=== PATIENT | female | born 1990 | race Caucasian/White ===

== ENCOUNTER 2016-11-23 09:55 | Emergency (ER) | payer MEDICAID ==
[~2016-11-23] VITALS: Ht 165.1 cm; Wt 73.0 kg
[~2016-11-23 09:55] MED LIST: LORA2TAB7 PO; METO50TA PO; SCOP1PAT2 T-DERMAL
[2016-11-23 10:05] VITALS: BP 120/88; PULSE 91; RESP 18; TEMP 99.3; O2SAT 100
[2016-11-23] MEDS ORDERED: ZITHTAB PO (10:12)
--- NOTE | 2016-11-23 10:36 | PD ---
HPI Chief Complaint: Respiratory Symptoms Time Seen by Provider: 10:09 Travel History International Travel<30 days: No Contact w/Intl Traveler<30days: No Traveled to known affect area: No History of Present Illness HPI This is a 26-year-old female who presents to the emergency department with 4 days of productive cough with green sputum, worse during the day, associated with nasal congestion and some subjective fevers and chills. She has been feeling short of breath, constant, moderate severity, worsening today. She does smoke cigarettes. She was seen at an urgent care 4 days ago and diagnosed with walking pneumonia. Didn't have a chest x-ray at that time. She was placed on azithromycin. She comes back in because she is concerned that she might have pneumonia because she's not getting any better and she feels short of breath. She does have an albuterol inhaler in her purse but she doesn't like to use it because it makes her feel jittery. PFSH Past Medical History Asthma: Yes Anxiety: Yes Depression: Yes Cardiovascular Problems: Yes High Cholesterol: Yes Diminished Hearing: No Genitourinary: No Hypertension: Yes (POST PREECLAMPSIA) Musculoskeletal: No Neurologic: No Reproductive: No Respiratory: Yes Immunizations Current: No Pneumonia: Yes ?: Not LMP: 11/05/16 : 2 Para: 1 Miscarriage: 1 : 1 Ovarian Cysts: Yes Dilation and Curettage (D&C): Yes Past Surgical History Gynecologic Surgery: Yes (D&C) Other Surgery: No Social History Alcohol Use: No Tobacco Use: Yes (1 PPD) Substance Use: No Allergies-Medications (Allergen,Severity, Reaction): Coded Allergies: Clarithromycin (Verified Allergy, Severe, Eye dilation , 11/23/16) Had to wear sunglasses outdoors and school. As well as indoors Latex (Verified Allergy, Severe, rash, 11/23/16) Cipro (Verified Allergy, Intermediate, vomiting/jittery, 11/23/16) GI Contrast Media (Verified Allergy, Unknown, Doesn't recall reaction , ) She doesn't remember at all. had an MRI as a child. Looking for brain tumors. Doxycycline (Verified Allergy, Unknown, 11/23/16) DOES NOT RECALL Penicillin (Verified Adverse Reaction, Severe, Hives , 11/23/16) Zoloft (Verified Adverse Reaction, Severe, Deep depression. , 11/23/16) Lost 60 pounds. Recurring infection Tylenol (Verified Adverse Reaction, Intermediate, Stomach aches , 11/23/16) Reported Meds & Prescriptions Reported Meds & Active Scripts Active Scopolamine Patch 72 HR (Scopolamine) 1 Mg Patch 1 Patch T-DERMAL Q72H Metoprolol Tartrate 50 Mg Tab 50 Mg PO BID Reported Zithromax Z-Ean (Azithromycin) 250 Mg Dspk 250 Mg PO DIRECTED 500 MG (2 tabs) day 1, then 1 tab days 2-5. Review of Systems Except as stated in HPI: all other systems reviewed are Neg Physical Exam Narrative GENERAL: Well-nourished, well-developed patient. SKIN: Warm and dry. HEAD: Normocephalic. EYES: No scleral icterus. No injection or drainage. NECK: Supple, trachea midline. CARDIOVASCULAR: Regular rate and rhythm without murmurs. RESPIRATORY: Minimal expiratory wheeze, no accessory muscle use, no tachypnea GASTROINTESTINAL: Abdomen soft, non-tender, nondistended. MUSCULOSKELETAL: No cyanosis, or edema. Data Data Last Documented VS Vital Signs Date Time Temp Pulse Resp B/P Pulse Ox O2 Delivery O2 Flow Rate FiO2 11/23/16 10:05 99.3 91 18 120/88 100 MDM Medical Decision Making Medical Screen Exam Complete: Yes Emergency Medical Condition: Yes Interpretation(s) Temperature is 99.3, pulse ox is 100 Differential Diagnosis Pneumonia, viral syndrome, influenza, bronchitis Narrative Course This is a 26-year-old female who presents to the emergency department with cough , congestion and low-grade fever. She has already taken 3 days of azithromycin and she doesn't like she's getting any better. Her oxygen saturation is 100% on room air. She has minimal wheezing on exam. I suggested to her to use her albuterol inhaler to manage her cough symptoms. I did offer her cough syrup but she declined. She was just really concerned that she has pneumonia. I think the patient is safe for discharge and follow-up with her primary care physician as needed. She likely has a viral illness and that's why she's not improving on the antibiotic. Diagnosis Primary Impression: Bronchitis Patient Instructions: General Instructions Additional Instructions: If you develop severe chest pain, shortness of breath, sweating, lightheadedness , dizziness or difficulty breathing return to the emergency department immediately. Followup with your primary care physician in 2-3 days if your symptoms are not resolved. Med/Other Pt SpecificInfo: No Change to Meds Disposition: 01 DISCHARGE HOME Condition: Stable Lashawn Rodriguez MD Nov 23, 2016 10:22
[2016-12-07] MEDS ORDERED: METO50TA PO ×2 (08:33→08:45)
[2016-12-08] MEDS ORDERED: LORA2TAB7 PO (11:02)
[2016-12-08] MEDS ORDERED: ZANTTAB9 PO (11:26)
[2016-12-08] MEDS ORDERED: LORA-361 PO (11:26)
== END 2016-11-23 11:07 | disposition home or self-care (01) ==
LOC: PHEFT 09:55
DX: J40 Bronchitis, not specified as acute or chronic (principal); E78.00 Pure hypercholesterolemia, unspecified; I10 Essential (primary) hypertension; F17.210 Nicotine dependence, cigarettes, uncomplicated
CPT/HCPCS: 99283

== ENCOUNTER 2017-04-01 23:32 | Emergency (ER) | payer MEDICAID ==
[~2017-04-01] VITALS: Ht 165.1 cm; Wt 79.7 kg
[~2017-04-01 23:32] MED LIST changes: +LORA-361 PO; -SCOP1PAT2 T-DERMAL; +ZANTTAB9 PO
[2017-04-01 23:43] VITALS: BP 134/102; PULSE 98; RESP 16; TEMP 98.5; O2SAT 99
[2017-04-02] MEDS ORDERED: LOPE2CAP PO (00:23)
--- NOTE | 2017-04-02 00:23 | PD ---
HPI Chief Complaint: GI Complaint Time Seen by Provider: 23:48 Travel History International Travel<30 days: No Contact w/Intl Traveler<30days: No Traveled to known affect area: No History of Present Illness HPI To 26 year-old woman who presents emergency department complaining that she feels unwell. Given URI symptoms as it multiple family members earlier this week. She completed a Z-Ean. Following that she noticed a rash, with a small wound on her left flank. She apparently went to a fairing worker to took samples of the drainage, presumably for culture. He also give her some clindamycin cream to put on it. She states since then she's been having diarrhea. States she has cramps in her lower abdomen and feel like contractions. Feels that she's been feeling hot and flushed with hot skin but no fever. She also feels chills. History Past Medical History Narrative Medical Hypertension LMP: "two weeks ago" : 2 Para: 1 Dilation and Curettage (D&C): Yes Social History Alcohol Use: No Tobacco Use: Yes (1 PPD) Allergies-Medications (Allergen,Severity, Reaction): Coded Allergies: Clarithromycin (Verified Allergy, Severe, Eye dilation , 04/02/17) Had to wear sunglasses outdoors and school. As well as indoors Latex (Verified Allergy, Severe, rash, 04/02/17) Cipro (Verified Allergy, Intermediate, vomiting/jittery, 04/02/17) GI Contrast Media (Verified Allergy, Unknown, Doesn't recall reaction , ) She doesn't remember at all. had an MRI as a child. Looking for brain tumors. Doxycycline (Verified Allergy, Unknown, 04/02/17) DOES NOT RECALL Penicillin (Verified Adverse Reaction, Severe, Hives , 04/02/17) Zoloft (Verified Adverse Reaction, Severe, Deep depression. , 04/02/17) Lost 60 pounds. Recurring infection Tylenol (Verified Adverse Reaction, Intermediate, Stomach aches , 04/02/17) Reported Meds & Prescriptions Reported Meds & Active Scripts Active Metoprolol Tartrate 50 Mg Tab 50 Mg PO BID Please send copy of your recent labs prior to more refills. Last set of labs we have are from 2014 Reported Ibuprofen 400 Mg Tab 400 Mg PO DAILY Lorazepam 2 Mg Tab 2 Mg PO Q6H PRN Review of Systems Except as stated in HPI: all other systems reviewed are Neg Physical Exam Narrative GENERAL: 18 year-old woman, no acute distress. SKIN: Focused skin assessment warm/dry. HEAD: Atraumatic. Normocephalic. CARDIOVASCULAR: Regular rate and rhythm. No murmur appreciated. RESPIRATORY: No accessory muscle use. Clear to auscultation. Breath sounds equal bilaterally. GASTROINTESTINAL: Normal contour and appearance but abdomen soft, minimal lower abdominal tenderness. She has a tiny wound on her left flank, about a couple millimeters in size, no erythema redness or drainage. States been applying clindamycin cream to the area. MUSCULOSKELETAL: No obvious deformities. No clubbing. No cyanosis. No edema. NEUROLOGICAL: Awake and alert. No obvious cranial nerve deficits. Motor grossly within normal limits. Normal speech. PSYCHIATRIC: Appropriate mood and affect; insight and judgment normal. Data Data Last Documented VS Vital Signs Date Time Temp Pulse Resp B/P Pulse Ox O2 Delivery O2 Flow Rate FiO2 04/02/17 01:05 82 18 108/69 98 Room Air 04/01/17 23:43 98.5 Orders Complete Blood Count With Diff (04/02/17 00:03) Comprehensive Metabolic Panel (04/02/17 00:03) Urinalysis - C+S If Indicated (04/02/17 00:03) Beta Hcg (Quant/Titer) (04/02/17 00:03) Enteric Path (Stool) (04/02/17 00:03) C Diff Toxin Pcr (04/02/17 00:03) Urine Culture (04/02/17 00:10) Labs Laboratory Tests Test 04/02/17 04/02/17 00:10 00:20 Urine Color YELLOW Urine Turbidity CLOUDY Urine pH 6.5 Urine Specific [place] 1.022 Urine Protein NEG mg/dL Urine Glucose (UA) NEG mg/dL Urine Ketones NEG mg/dL Urine Occult Blood NEG Urine Nitrite NEG Urine Bilirubin NEG Urine Leukocyte Esterase TRACE Urine RBC 0-2 /hpf Urine WBC 3-5 /hpf Urine Squamous Epithelial > 8 /hpf Cells Urine Amorphous Sediment MOD Urine Bacteria MANY /hpf Microscopic Urinalysis Comment CULTURE INDICATED White Blood Count 13.1 TH/MM3 Red Blood Count 4.95 MIL/MM3 Hemoglobin 13.2 GM/DL Hematocrit 38.8 % Mean Corpuscular Volume 78.5 FL Mean Corpuscular Hemoglobin 26.7 PG Mean Corpuscular Hemoglobin 34.0 % Concent Red Cell Distribution Width 12.1 % Platelet Count 276 TH/MM3 Mean Platelet Volume 7.4 FL Neutrophils (%) (Auto) 57.7 % Lymphocytes (%) (Auto) 34.2 % Monocytes (%) (Auto) 5.4 % Eosinophils (%) (Auto) 2.2 % Basophils (%) (Auto) 0.5 % Neutrophils # (Auto) 7.5 TH/MM3 Lymphocytes # (Auto) 4.5 TH/MM3 Monocytes # (Auto) 0.7 TH/MM3 Eosinophils # (Auto) 0.3 TH/MM3 Basophils # (Auto) 0.1 TH/MM3 CBC Comment DIFF FINAL Differential Comment Sodium Level 142 MEQ/L Potassium Level 3.6 MEQ/L Chloride Level 106 MEQ/L Carbon Dioxide Level 28.4 MEQ/L Anion Gap 8 MEQ/L Blood Urea Nitrogen 18 MG/DL Creatinine 0.73 MG/DL Estimat Glomerular Filtration 95 ML/MIN Rate Random Glucose 116 MG/DL Calcium Level 8.6 MG/DL Total Bilirubin 0.3 MG/DL Aspartate Amino Transf 13 U/L (AST/SGOT) Alanine Aminotransferase 27 U/L (ALT/SGPT) Alkaline Phosphatase 71 U/L Total Protein 7.3 GM/DL Albumin 3.7 GM/DL Human Chorionic Gonadotropin, LESS THAN 1 Quant MIU/ML MDM Medical Decision Making Medical Screen Exam Complete: Yes Emergency Medical Condition: Yes Differential Diagnosis Antibiotic associated diarrhea, infectious diarrhea, C. difficile, other Narrative Course Medical decision making 18 year-old woman, appears revealed a somatic preoccupied, presents with a variety of complaints including what sounds like diarrhea chills and some lower abdominal cramping. She looks well. She is worried about the small wound that she had. She is worried she may have C. difficile from taking the clindamycin cream. This is very unlikely to me. She does on azithromycin. We'll check labs, she is able to give a stool sample will send a, otherwise I think she is fine to take loperamide, drink fluids, follow-up with her regular doctor. Diagnosis Primary Impression: Diarrhea Additional Instructions: Use loperamide as needed for diarrhea. Follow-up with your primary doctor in the next 2-4 days if not feeling better. Drink plenty of fluids to stay well-hydrated. Return to the emergency department for any new or worsening symptoms. Med/Other Pt SpecificInfo: Prescription(s) given Disposition: 01 DISCHARGE HOME Condition: Stable Isidro Jeffrey MD Apr 02, 2017 00:23
[2017-04-02 00:28] LABS: BLOOD, URINE NEG (NEG); GLUCOSE,URINE NEG (NEG); KETONE, URINE NEG (NEG); NITRITE,URINE NEG (NEG); PH, URINE 6.5 (5.0-8.5)
[2017-04-02 00:29] LABS: AUTOMATED NEUTROPHIL # 7.5 TH/MM3 (1.8-7.7); BASOPHIL # 0.1 TH/MM3 (0-0.2); BASOPHIL % 0.5 % (0.0-2.0); EOSINOPHIL # 0.3 TH/MM3 (0-0.4); EOSINOPHIL % 2.2 % (0.0-4.0); HEMATOCRIT 38.8 % (35.0-46.0); HEMO FLAGS DIFF FINAL; LYMPH % 34.2 % (9.0-44.0); LYMPHOCYTE # 4.5 TH/MM3 (1.0-4.8); MEAN CELL VOLUME 78.5 FL (80.0-100.0); MEAN CORPUSCULAR HEMOGLOBIN 26.7 PG (27.0-34.0); MONO % 5.4 % (0.0-8.0); NEUT % 57.7 % (16.0-70.0); PLATELET COUNT 276 TH/MM3 (150-450); RED BLOOD COUNT 4.95 MIL/MM3 (4.00-5.30); RED CELL DISTRIBUTION WIDTH 12.1 % (11.6-17.2); WHITE BLOOD COUNT 13.1 TH/MM3 (4.0-11.0)
[2017-04-02 00:35] LABS: CHLORIDE 106 MEQ/L (98-107); POTASSIUM 3.6 MEQ/L (3.5-5.1); SODIUM (NA) 142 MEQ/L (136-145)
[2017-04-02 00:36] LABS: URINE COLOR YELLOW (YELLW/STRAW)
[2017-04-02] MEDS ORDERED: IBUP400T20 PO (00:36)
[2017-04-02 00:37] LABS: BACTERIA, URINE MANY /hpf; COMMENT (UR) CULTURE INDICATED; CULTURE IF INDICATED CULTURE INDICATED; RBC, URINE 0-2 /hpf (0-3); SQUAMOUS EPITHELIAL CELL URINE > 8 /hpf (0-5)
[2017-04-02 00:39] LABS: ANION GAP 8 MEQ/L (5-15); BICARBONATE 28.4 MEQ/L (21.0-32.0); BLOOD UREA NITROGEN 18 MG/DL (7-18)
[2017-04-02 00:42] LABS: ALT (GPT) 27 U/L (10-53); AST (GOT) 13 U/L (15-37); GLOMERULAR FILTRATION RATE 95 ML/MIN (>89)
[2017-04-02 00:44] LABS: TOTAL BILIRUBIN ADULT 0.3 MG/DL (0.2-1.0)
[2017-04-02 00:45] LABS: ALKALINE PHOSPHATASE 71 U/L (45-117)
[2017-04-02 00:47] LABS: BETA HCG QUANT LESS THAN 1 MIU/ML (0-5)
[2017-04-02 01:05] VITALS: BP 108/69; PULSE 82; RESP 18; O2SAT 98
[2017-04-02 01:43] VITALS: BP 110/74
== END 2017-04-02 01:45 | disposition home or self-care (01) ==
LOC: PHED 23:32
DX: R19.7 Diarrhea, unspecified (principal); I10 Essential (primary) hypertension
CPT/HCPCS: 80053; 81001; 84702; 85025; 87086; 99283

== ENCOUNTER 2017-07-08 11:43 | Emergency (ER) | payer MEDICAID ==
[~2017-07-08] VITALS: Ht 165.1 cm; Wt 80.0 kg
[~2017-07-08 11:43] MED LIST changes: +IBUP400T20 PO; -LORA-361 PO; -ZANTTAB9 PO
[2017-07-08 11:46] VITALS: BP 145/87; PULSE 93; RESP 17; TEMP 99; O2SAT 99
--- NOTE | 2017-07-08 11:51 | PD ---
Physical Exam Date Seen by Provider: Jul 08, 2017 Time Seen by Provider: 11:48 Narrative 26-year-old female whose last menstrual period was partially 5 weeks ago, and recent positive test a couple of days ago. Patient at this morning with severe vaginal bleeding and cramping. Patient is somewhat weak. She states that dark spotting 3 days ago. Patient feels dizzy and somewhat confused. Patient denies blood clots. She has multiple allergies. Please see list. Vital signs currently stable. Patient awaiting bed placement. Data Data Last Documented VS Vital Signs Date Time Temp Pulse Resp B/P (MAP) Pulse Ox O2 Delivery O2 Flow Rate FiO2 07/08/17 11:46 99.0 93 17 145/87 (106) 99 MDM Medical Record Reviewed: Yes Supervised Visit with RAMONA: Yes Condition: Stable Andrae Merino Jul 08, 2017 11:51
[2017-07-08 12:37] LABS: AUTOMATED NEUTROPHIL # 6.1 TH/MM3 (1.8-7.7); BACTERIA, URINE OCC /hpf; BASOPHIL % 0.4 % (0.0-2.0); BLOOD, URINE LARGE (NEG); COMMENT (UR) CULT NOT INDICATED; CULTURE IF INDICATED CULT NOT INDICATED; EOSINOPHIL # 0.3 TH/MM3 (0-0.4); EOSINOPHIL % 2.7 % (0.0-4.0); GLUCOSE,URINE NEG (NEG); HEMATOCRIT 38.5 % (35.0-46.0); HEMO FLAGS DIFF FINAL; KETONE, URINE NEG (NEG); LYMPH % 32.7 % (9.0-44.0); LYMPHOCYTE # 3.3 TH/MM3 (1.0-4.8); MEAN CELL VOLUME 79.8 FL (80.0-100.0); MEAN CORPUSCULAR HEMOGLOBIN 28.4 PG (27.0-34.0); MEAN CORPUSCULAR HGB CONC 35.6 % (32.0-36.0); MONO % 4.1 % (0.0-8.0); NEUT % 60.1 % (16.0-70.0); NITRITE,URINE NEG (NEG); PH, URINE 6.5 (5.0-8.5); PLATELET COUNT 269 TH/MM3 (150-450); RED BLOOD COUNT 4.82 MIL/MM3 (4.00-5.30); RED CELL DISTRIBUTION WIDTH 13.4 % (11.6-17.2); SQUAMOUS EPITHELIAL CELL URINE 1 /hpf (0-5); WHITE BLOOD COUNT 10.2 TH/MM3 (4.0-11.0)
[2017-07-08 12:39] LABS: URINE COLOR LIGHT-RED (YELLW/STRAW)
[2017-07-08 12:52] LABS: ANION GAP 6 MEQ/L (5-15); AST (GOT) 15 U/L (15-37); BICARBONATE 27.9 MEQ/L (21.0-32.0); BLOOD UREA NITROGEN 11 MG/DL (7-18); CHLORIDE 105 MEQ/L (98-107); GLOMERULAR FILTRATION RATE 96 ML/MIN (>89); POTASSIUM 3.6 MEQ/L (3.5-5.1); SODIUM (NA) 139 MEQ/L (136-145)
[2017-07-08 12:58] LABS: ALKALINE PHOSPHATASE 72 U/L (45-117); ALT (GPT) 24 U/L (10-53); BETA HCG QUANT 16 MIU/ML (0-5); TOTAL BILIRUBIN ADULT 0.3 MG/DL (0.2-1.0)
--- NOTE | 2017-07-08 14:01 | PD ---
HPI Chief Complaint: Related Problem Time Seen by Provider: 13:21 Travel History International Travel<30 days: No Contact w/Intl Traveler<30days: No Traveled to known affect area: No History of Present Illness HPI PATIENT STATES THAT HER LAST PERIOD WAS 5 WEEKS AGO, AND THAT 3 DAYS AGO SHE STARTED SPOTTING, TODAY HEAVIER FLOW AND PER PATIENT SHE HAD POSITIVE HOME . ASSOCIATED CRAMPS WITH VAG BLEEDING/SPOTTING OVER PAST 3 DAYS FEELS SIMILAR TO HER NORMAL PERIOD PFSH Past Medical History Asthma: Yes Anxiety: Yes Depression: Yes Cardiovascular Problems: Yes (HTN) High Cholesterol: Yes Diminished Hearing: No Genitourinary: No Hypertension: Yes (POST PREECLAMPSIA) Musculoskeletal: No Neurologic: No Reproductive: No Respiratory: Yes Immunizations Current: No Pneumonia: Yes Tetanus Vaccination: < 5 Years Influenza Vaccination: No ?: Not LMP: 06/03/17 : 2 Para: 1 Miscarriage: 1 : 1 Ovarian Cysts: Yes Dilation and Curettage (D&C): Yes Past Surgical History Gynecologic Surgery: Yes (D&C) Other Surgery: No Social History Alcohol Use: No Tobacco Use: Yes (1 PPD) Substance Use: No Allergies-Medications (Allergen,Severity, Reaction): Coded Allergies: clarithromycin (Unverified Allergy, Severe, Eye dilation , 07/08/17) Had to wear sunglasses outdoors and school. As well as indoors latex (Unverified Allergy, Severe, rash, 07/08/17) ciprofloxacin (Unverified Allergy, Intermediate, vomiting/jittery, 07/08/17 ) GI diatrizoate meglumine (Unverified Allergy, Unknown, Doesn't recall reaction , 07/08/17) She doesn't remember at all. had an MRI as a child. Looking for brain tumors. doxycycline (Unverified Allergy, Unknown, 07/08/17) DOES NOT RECALL gadobenic acid (Unverified Allergy, Unknown, Doesn't recall reaction , ) She doesn't remember at all. had an MRI as a child. Looking for brain tumors. gadodiamide (Unverified Allergy, Unknown, Doesn't recall reaction , ) She doesn't remember at all. had an MRI as a child. Looking for brain tumors. gadoteridol (Unverified Allergy, Unknown, Doesn't recall reaction , ) She doesn't remember at all. had an MRI as a child. Looking for brain tumors. iodixanol (Unverified Allergy, Unknown, Doesn't recall reaction , 07/08/17) She doesn't remember at all. had an MRI as a child. Looking for brain tumors. iohexol (Unverified Allergy, Unknown, Doesn't recall reaction , 07/08/17) She doesn't remember at all. had an MRI as a child. Looking for brain tumors. penicillin G (Unverified Adverse Reaction, Severe, Hives , 07/08/17) sertraline (Unverified Adverse Reaction, Severe, Deep depression. , ) Lost 60 pounds. Recurring infection acetaminophen (Unverified Adverse Reaction, Intermediate, Stomach aches , 07/08/17) Reported Meds & Prescriptions Reported Meds & Active Scripts Active Metoprolol Tartrate 50 Mg Tab 50 Mg PO BID Please send copy of your recent labs prior to more refills. Last set of labs we have are from 2014 Reported Ibuprofen 400 Mg Tab 400 Mg PO DAILY Lorazepam 2 Mg Tab 2 Mg PO Q6H PRN Review of Systems Except as stated in HPI: all other systems reviewed are Neg Genitourinary: Positive: Vaginal Bleeding Physical Exam Narrative GENERAL: SKIN: Warm and dry. HEAD: Atraumatic. Normocephalic. EYES: Pupils equal and round. No scleral icterus. No injection or drainage. ENT: No nasal bleeding or discharge. Mucous membranes pink and moist. NECK: Trachea midline. No JVD. CARDIOVASCULAR: Regular rate and rhythm. RESPIRATORY: No accessory muscle use. Clear to auscultation. Breath sounds equal bilaterally. GASTROINTESTINAL: Abdomen soft, non-tender, nondistended. MUSCULOSKELETAL: Extremities without clubbing, cyanosis, or edema. No obvious deformities. NEUROLOGICAL: Awake and alert. No obvious cranial nerve deficits. Motor grossly within normal limits. Five out of 5 muscle strength in the arms and legs. Normal speech. PSYCHIATRIC: Appropriate mood and affect; insight and judgment normal. Data Data Last Documented VS Vital Signs Date Time Temp Pulse Resp B/P (MAP) Pulse Ox O2 Delivery O2 Flow Rate FiO2 07/08/17 11:46 99.0 93 17 145/87 (106) 99 Orders Orders Beta Hcg (Quant/Titer) (07/08/17 11:53) Complete Blood Count With Diff (07/08/17 11:53) Comprehensive Metabolic Panel (07/08/17 11:53) Complete Rh (07/08/17 11:53) Urinalysis - C+S If Indicated (07/08/17 11:53) Ed Urine Pregnancytest Poc (07/08/17 12:09) Labs Laboratory Tests Test 07/08/17 12:00 White Blood Count 10.2 TH/MM3 Red Blood Count 4.82 MIL/MM3 Hemoglobin 13.7 GM/DL Hematocrit 38.5 % Mean Corpuscular Volume 79.8 FL Mean Corpuscular Hemoglobin 28.4 PG Mean Corpuscular Hemoglobin Concent 35.6 % Red Cell Distribution Width 13.4 % Platelet Count 269 TH/MM3 Mean Platelet Volume 7.6 FL Neutrophils (%) (Auto) 60.1 % Lymphocytes (%) (Auto) 32.7 % Monocytes (%) (Auto) 4.1 % Eosinophils (%) (Auto) 2.7 % Basophils (%) (Auto) 0.4 % Neutrophils # (Auto) 6.1 TH/MM3 Lymphocytes # (Auto) 3.3 TH/MM3 Monocytes # (Auto) 0.4 TH/MM3 Eosinophils # (Auto) 0.3 TH/MM3 Basophils # (Auto) 0.0 TH/MM3 CBC Comment DIFF FINAL Differential Comment Urine Color LIGHT-RED Urine Turbidity HAZY Urine pH 6.5 Urine Specific [place] 1.011 Urine Protein TRACE mg/dL Urine Glucose (UA) NEG mg/dL Urine Ketones NEG mg/dL Urine Occult Blood LARGE Urine Nitrite NEG Urine Bilirubin NEG Urine Urobilinogen LESS THAN 2.0 MG/DL Urine Leukocyte Esterase SMALL Urine RBC /hpf Urine WBC 6 /hpf Urine Squamous Epithelial Cells 1 /hpf Urine Bacteria OCC /hpf Microscopic Urinalysis Comment CULT NOT INDICATED Blood Urea Nitrogen 11 MG/DL Creatinine 0.72 MG/DL Random Glucose 111 MG/DL Total Protein 7.6 GM/DL Albumin 4.0 GM/DL Calcium Level 8.9 MG/DL Alkaline Phosphatase 72 U/L Aspartate Amino Transf (AST/SGOT) 15 U/L Alanine Aminotransferase (ALT/SGPT) 24 U/L Total Bilirubin 0.3 MG/DL Sodium Level 139 MEQ/L Potassium Level 3.6 MEQ/L Chloride Level 105 MEQ/L Carbon Dioxide Level 27.9 MEQ/L Anion Gap 6 MEQ/L Estimat Glomerular Filtration Rate 96 ML/MIN Human Chorionic Gonadotropin, Quant 16 MIU/ML MDM Medical Decision Making Medical Screen Exam Complete: Yes Emergency Medical Condition: Yes Medical Record Reviewed: Yes Differential Diagnosis UTI V DUB V SPONT AB Narrative Course PATIENT FOUND TO BE NEGATIVE FOR UTI, QUANT HCG IS INCONGRUENT WITH LMP, C/W SPONT AB Diagnosis Primary Impression: Spontaneous Patient Instructions: General Instructions, Miscarriage (ED) Additional Instructions: PLEASE SCHEDULE OUTPATIENT ULTRASOUND IN ONE WEEK AND FOLLOW UP WITH YOUR PRIMARY DOCTOR JUAN PABLO Disposition: 01 DISCHARGE HOME Condition: Stable Adan Banks MD Jul 08, 2017 14:00
[2017-07-08] MEDS ORDERED: ULTR50TA5 PO (14:15)
== END 2017-07-08 14:37 | disposition home or self-care (01) ==
LOC: NEPD 11:43
DX: O03.9 Complete or unspecified spontaneous abortion without complication (principal)
CPT/HCPCS: 80053; 81001; 84702; 84703; 85025; 86901; 99283

== ENCOUNTER 2017-07-12 15:25 | Emergency (ER) | payer MEDICAID ==
[~2017-07-12 15:25] MED LIST changes: +ULTR50TA5 PO
[2017-07-12 15:26] VITALS: BP 151/100; PULSE 86; RESP 16; TEMP 98.2; O2SAT 98
--- NOTE | 2017-07-12 15:58 | PD ---
Physical Exam Date Seen by Provider: Jul 12, 2017 Time Seen by Provider: 15:56 Narrative 26 yo female here for pelvic pain. On told she had misscarriage. Here because she feels dizzy, lightheaded and has pain to the right pelvic area. Bleeding. Pain is 6/10. Vitals are stable in triage. Awaiting bed placement. Data Data Last Documented VS Vital Signs Date Time Temp Pulse Resp B/P (MAP) Pulse Ox O2 Delivery O2 Flow Rate FiO2 07/12/17 15:26 98.2 86 16 151/100 (117) 98 Orders Orders Urinalysis - C+S If Indicated (07/12/17 15:52) Ed Urine Pregnancytest Poc (07/12/17 15:52) Complete Blood Count With Diff (07/12/17 15:56) Basic Metabolic Panel (Bmp) (07/12/17 15:56) Beta Hcg (Quant/Titer) (07/12/17 15:56) Magnesium (Mg) (07/12/17 15:56) MDM Medical Record Reviewed: Yes Supervised Visit with RAMONA: No Steven Terrazas Jul 12, 2017 15:58
[2017-07-12 16:27] LABS: BACTERIA, URINE RARE /hpf; BLOOD, URINE NEG (NEG); GLUCOSE,URINE NEG (NEG); KETONE, URINE NEG (NEG); NITRITE,URINE NEG (NEG); SQUAMOUS EPITHELIAL CELL URINE 3 /hpf (0-5); URINE COLOR LIGHT-YELLOW (YELLW/STRAW)
[2017-07-12 16:28] LABS: COMMENT (UR) CULT NOT INDICATED; CULTURE IF INDICATED CULT NOT INDICATED
--- NOTE | 2017-07-12 18:31 | PD ---
HPI Chief Complaint: Related Problem Time Seen by Provider: 18:31 Travel History International Travel<30 days: No Contact w/Intl Traveler<30days: No Traveled to known affect area: No [facility] Past Medical History Asthma: Yes Anxiety: Yes Depression: Yes Cardiovascular Problems: Yes (HTN) High Cholesterol: Yes Diminished Hearing: No Genitourinary: No Hypertension: Yes (POST PREECLAMPSIA) Musculoskeletal: No Neurologic: No Reproductive: No Respiratory: Yes Immunizations Current: No Pneumonia: Yes : 2 Para: 1 Miscarriage: 1 : 1 Ovarian Cysts: Yes Dilation and Curettage (D&C): Yes Past Surgical History Gynecologic Surgery: Yes (D&C) Other Surgery: No Social History Alcohol Use: No Tobacco Use: Yes (1 PPD) Substance Use: No Allergies-Medications (Allergen,Severity, Reaction): Coded Allergies: clarithromycin (Unverified Allergy, Severe, Eye dilation , 07/12/17) Had to wear sunglasses outdoors and school. As well as indoors latex (Unverified Allergy, Severe, rash, 07/12/17) ciprofloxacin (Unverified Allergy, Intermediate, vomiting/jittery, 07/12/17 ) GI diatrizoate meglumine (Unverified Allergy, Unknown, Doesn't recall reaction , 07/12/17) She doesn't remember at all. had an MRI as a child. Looking for brain tumors. doxycycline (Unverified Allergy, Unknown, 07/12/17) DOES NOT RECALL gadobenic acid (Unverified Allergy, Unknown, Doesn't recall reaction , ) She doesn't remember at all. had an MRI as a child. Looking for brain tumors. gadodiamide (Unverified Allergy, Unknown, Doesn't recall reaction , ) She doesn't remember at all. had an MRI as a child. Looking for brain tumors. gadoteridol (Unverified Allergy, Unknown, Doesn't recall reaction , ) She doesn't remember at all. had an MRI as a child. Looking for brain tumors. iodixanol (Unverified Allergy, Unknown, Doesn't recall reaction , 07/12/17) She doesn't remember at all. had an MRI as a child. Looking for brain tumors. iohexol (Unverified Allergy, Unknown, Doesn't recall reaction , 07/12/17) She doesn't remember at all. had an MRI as a child. Looking for brain tumors. penicillin G (Unverified Adverse Reaction, Severe, Hives , 07/12/17) sertraline (Unverified Adverse Reaction, Severe, Deep depression. , ) Lost 60 pounds. Recurring infection acetaminophen (Unverified Adverse Reaction, Intermediate, Stomach aches , 07/12/17) Reported Meds & Prescriptions Reported Meds & Active Scripts Active Ultram (Tramadol HCl) 50 Mg Tab 50 Mg PO Q4H PRN Metoprolol Tartrate 50 Mg Tab 50 Mg PO BID Please send copy of your recent labs prior to more refills. Last set of labs we have are from 2014 Reported Ibuprofen 400 Mg Tab 400 Mg PO DAILY Lorazepam 2 Mg Tab 2 Mg PO Q6H PRN Data Data Last Documented VS Vital Signs Date Time Temp Pulse Resp B/P (MAP) Pulse Ox O2 Delivery O2 Flow Rate FiO2 07/12/17 15:26 98.2 86 16 151/100 (117) 98 Orders Orders Urinalysis - C+S If Indicated (07/12/17 15:52) Ed Urine Pregnancytest Poc (07/12/17 15:52) Complete Blood Count With Diff (07/12/17 15:56) Basic Metabolic Panel (Bmp) (07/12/17 15:56) Beta Hcg (Quant/Titer) (07/12/17 15:56) Magnesium (Mg) (07/12/17 15:56) Us Pelvis (Ques Preg/Ectopic) (07/12/17 ) Labs Laboratory Tests Test 07/12/17 16:06 Urine Color LIGHT-YELLOW Urine Turbidity CLEAR Urine pH 7.0 Urine Specific [place] 1.004 Urine Protein NEG mg/dL Urine Glucose (UA) NEG mg/dL Urine Ketones NEG mg/dL Urine Occult Blood NEG Urine Nitrite NEG Urine Bilirubin NEG Urine Urobilinogen LESS THAN 2.0 MG/DL Urine Leukocyte Esterase SMALL Urine RBC LESS THAN 1 /hpf Urine WBC 2 /hpf Urine Squamous Epithelial Cells 3 /hpf Urine Bacteria RARE /hpf Microscopic Urinalysis Comment CULT NOT INDICATED Belinda Espinal Jul 12, 2017 18:31
--- NOTE | 2017-07-12 18:40 | PD ---
HPI . possible and HTN Chief Complaint: Related Problem Time Seen by Provider: 18:36 Travel History International Travel<30 days: No Contact w/Intl Traveler<30days: No Traveled to known affect area: No History of Present Illness HPI 26 yr old female here with c/o elevated bp. Patient says that she was here last week and seen. 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 She does have history of elevated blood pressure and preeclampsia. Patient says that she was not anxious and felt confused. She was told to come to the ED because her symptoms were similar to post preeclampsia. She also tells me that her provider Carin told her that her beta hCG levels were exactly where they were supposed to be with and that she should come back and get it rechecked because she is likely still. test was done in waiting room and is negative. Patient is still requesting the labs be done as well as ultrasound. She wants to see if she is . She says during her last visit she had not yet missed a period and took an early test. She tells me that her LMP was 06/13/17 and that our nurses recorded it incorrectly. She says she still believes she is . She has nausea and feels . PFSH Past Medical History Asthma: Yes Anxiety: Yes Depression: Yes Cardiovascular Problems: Yes (HTN) High Cholesterol: Yes Diminished Hearing: No Genitourinary: No Hypertension: Yes (POST PREECLAMPSIA) Musculoskeletal: No Neurologic: No Reproductive: No Respiratory: Yes Immunizations Current: No Pneumonia: Yes : 2 Para: 1 Miscarriage: 1 : 1 Ovarian Cysts: Yes Dilation and Curettage (D&C): Yes Past Surgical History Gynecologic Surgery: Yes (D&C) Other Surgery: No Social History Alcohol Use: No Tobacco Use: Yes (1 PPD) Substance Use: No Allergies-Medications (Allergen,Severity, Reaction): Coded Allergies: clarithromycin (Unverified Allergy, Severe, Eye dilation , 07/12/17) Had to wear sunglasses outdoors and school. As well as indoors latex (Unverified Allergy, Severe, rash, 07/12/17) ciprofloxacin (Unverified Allergy, Intermediate, vomiting/jittery, 07/12/17 ) GI diatrizoate meglumine (Unverified Allergy, Unknown, Doesn't recall reaction , 07/12/17) She doesn't remember at all. had an MRI as a child. Looking for brain tumors. doxycycline (Unverified Allergy, Unknown, 07/12/17) DOES NOT RECALL gadobenic acid (Unverified Allergy, Unknown, Doesn't recall reaction , ) She doesn't remember at all. had an MRI as a child. Looking for brain tumors. gadodiamide (Unverified Allergy, Unknown, Doesn't recall reaction , ) She doesn't remember at all. had an MRI as a child. Looking for brain tumors. gadoteridol (Unverified Allergy, Unknown, Doesn't recall reaction , ) She doesn't remember at all. had an MRI as a child. Looking for brain tumors. iodixanol (Unverified Allergy, Unknown, Doesn't recall reaction , 07/12/17) She doesn't remember at all. had an MRI as a child. Looking for brain tumors. iohexol (Unverified Allergy, Unknown, Doesn't recall reaction , 07/12/17) She doesn't remember at all. had an MRI as a child. Looking for brain tumors. labetalol (Verified Allergy, Unknown, 07/12/17) penicillin G (Unverified Adverse Reaction, Severe, Hives , 07/12/17) sertraline (Unverified Adverse Reaction, Severe, Deep depression. , ) Lost 60 pounds. Recurring infection Reported Meds & Prescriptions Reported Meds & Active Scripts Active Ultram (Tramadol HCl) 50 Mg Tab 50 Mg PO Q4H PRN Metoprolol Tartrate 50 Mg Tab 50 Mg PO BID Please send copy of your recent labs prior to more refills. Last set of labs we have are from 2014 Reported Ibuprofen 400 Mg Tab 400 Mg PO DAILY Lorazepam 2 Mg Tab 2 Mg PO Q6H PRN Review of Systems General / Constitutional: No: Fever Eyes: No: Visual changes HENT: No: Headaches Cardiovascular: No: Chest Pain or Discomfort Respiratory: No: Shortness of Breath Gastrointestinal: No: Abdominal Pain Genitourinary: No: Dysuria Musculoskeletal: No: Pain Skin: No Rash Neurologic: No: Weakness Psychiatric: No: Depression Endocrine: No: Polydipsia Hematologic/Lymphatic: No: Easy Bruising Physical Exam Narrative GENERAL: AAO x 3, no acute distress, Well-nourished, well-developed patient. SKIN: Warm and dry. No visible rashes or bruising. HEAD: Normocephalic and atraumatic. EYES: No scleral icterus. No injection or drainage. ENT: No nasal drainage noted. Mucous membranes pink. Airway patent. NECK: Supple, trachea midline. No JVD. CARDIOVASCULAR: Regular rate and rhythm without murmurs, gallops, or rubs. RESPIRATORY: Breath sounds equal bilaterally. No accessory muscle use. No rhonchi or rales. GASTROINTESTINAL: Abdomen soft, non-tender, nondistended. no rebound or guarding EXTREMITIES: No cyanosis or edema. BACK: Nontender without obvious deformity. No CVA tenderness. NEURO: CN II-12 intact, patent law specialist strength normal b/l, UE and LE 5/5, no focal deficits PSYCH: AAO x 3, normal affect. Data Data Last Documented VS Vital Signs Date Time Temp Pulse Resp B/P (MAP) Pulse Ox O2 Delivery O2 Flow Rate FiO2 07/12/17 20:00 73 16 108/71 (83) 98 Room Air 07/12/17 15:26 98.2 Orders Orders Urinalysis - C+S If Indicated (07/12/17 15:52) Ed Urine Pregnancytest Poc (07/12/17 15:52) Complete Blood Count With Diff (07/12/17 15:56) Basic Metabolic Panel (Bmp) (07/12/17 15:56) Beta Hcg (Quant/Titer) (07/12/17 15:56) Magnesium (Mg) (07/12/17 15:56) Us Pelvis Comp W Doppler (07/12/17 18:53) Labs Laboratory Tests Test 07/12/17 16:06 07/12/17 18:50 Urine Color LIGHT-YELLOW Urine Turbidity CLEAR Urine pH 7.0 Urine Specific [place] 1.004 Urine Protein NEG mg/dL Urine Glucose (UA) NEG mg/dL Urine Ketones NEG mg/dL Urine Occult Blood NEG Urine Nitrite NEG Urine Bilirubin NEG Urine Urobilinogen LESS THAN 2.0 MG/DL Urine Leukocyte Esterase SMALL Urine RBC LESS THAN 1 /hpf Urine WBC 2 /hpf Urine Squamous Epithelial Cells 3 /hpf Urine Bacteria RARE /hpf Microscopic Urinalysis Comment CULT NOT INDICATED White Blood Count 12.3 TH/MM3 Red Blood Count 5.08 MIL/MM3 Hemoglobin 13.6 GM/DL Hematocrit 40.3 % Mean Corpuscular Volume 79.4 FL Mean Corpuscular Hemoglobin 26.8 PG Mean Corpuscular Hemoglobin Concent 33.7 % Red Cell Distribution Width 12.9 % Platelet Count 311 TH/MM3 Mean Platelet Volume 7.4 FL Neutrophils (%) (Auto) 59.7 % Lymphocytes (%) (Auto) 31.8 % Monocytes (%) (Auto) 4.5 % Eosinophils (%) (Auto) 3.4 % Basophils (%) (Auto) 0.6 % Neutrophils # (Auto) 7.4 TH/MM3 Lymphocytes # (Auto) 3.9 TH/MM3 Monocytes # (Auto) 0.6 TH/MM3 Eosinophils # (Auto) 0.4 TH/MM3 Basophils # (Auto) 0.1 TH/MM3 CBC Comment DIFF FINAL Differential Comment Blood Urea Nitrogen 13 MG/DL Creatinine 0.80 MG/DL Random Glucose 100 MG/DL Calcium Level 9.4 MG/DL Magnesium Level 2.0 MG/DL Sodium Level 138 MEQ/L Potassium Level 3.7 MEQ/L Chloride Level 102 MEQ/L Carbon Dioxide Level 26.1 MEQ/L Anion Gap 10 MEQ/L Estimat Glomerular Filtration Rate 85 ML/MIN Human Chorionic Gonadotropin, Quant 31 MIU/ML MDM Medical Decision Making Medical Screen Exam Complete: Yes Emergency Medical Condition: Yes Medical Record Reviewed: Yes Differential Diagnosis HTN, anxiety, miscarriage, Narrative Course 26-year-old female here with complaints of elevated blood pressure and possibly still be . Labs were ordered in triage. I have ordered an US as patient is very worried about retained products of conception. I explained to her that it may be too early to see anything. She is very anxious. I think her anxiety is leading to her elevated bp. Laboratory Tests Test 07/12/17 16:06 07/12/17 18:50 Urine Color LIGHT-YELLOW Urine Turbidity CLEAR Urine pH 7.0 Urine Specific [place] 1.004 Urine Protein NEG mg/dL Urine Glucose (UA) NEG mg/dL Urine Ketones NEG mg/dL Urine Occult Blood NEG Urine Nitrite NEG Urine Bilirubin NEG Urine Urobilinogen LESS THAN 2.0 MG/DL Urine Leukocyte Esterase SMALL Urine RBC LESS THAN 1 /hpf Urine WBC 2 /hpf Urine Squamous Epithelial Cells 3 /hpf Urine Bacteria RARE /hpf Microscopic Urinalysis Comment CULT NOT INDICATED White Blood Count 12.3 TH/MM3 Red Blood Count 5.08 MIL/MM3 Hemoglobin 13.6 GM/DL Hematocrit 40.3 % Mean Corpuscular Volume 79.4 FL Mean Corpuscular Hemoglobin 26.8 PG Mean Corpuscular Hemoglobin Concent 33.7 % Red Cell Distribution Width 12.9 % Platelet Count 311 TH/MM3 Mean Platelet Volume 7.4 FL Neutrophils (%) (Auto) 59.7 % Lymphocytes (%) (Auto) 31.8 % Monocytes (%) (Auto) 4.5 % Eosinophils (%) (Auto) 3.4 % Basophils (%) (Auto) 0.6 % Neutrophils # (Auto) 7.4 TH/MM3 Lymphocytes # (Auto) 3.9 TH/MM3 Monocytes # (Auto) 0.6 TH/MM3 Eosinophils # (Auto) 0.4 TH/MM3 Basophils # (Auto) 0.1 TH/MM3 CBC Comment DIFF FINAL Differential Comment Blood Urea Nitrogen 13 MG/DL Creatinine 0.80 MG/DL Random Glucose 100 MG/DL Calcium Level 9.4 MG/DL Magnesium Level 2.0 MG/DL Sodium Level 138 MEQ/L Potassium Level 3.7 MEQ/L Chloride Level 102 MEQ/L Carbon Dioxide Level 26.1 MEQ/L Anion Gap 10 MEQ/L Estimat Glomerular Filtration Rate 85 ML/MIN Human Chorionic Gonadotropin, Quant 31 MIU/ML HCG 31 I have discussed with my attending Dr. Rodriguez. We recommend outpatient repeat HCG levels. I discussed the results with patient and her mother. 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 I explained to the patient I think her bp elevated due to her level of stress and anxiety. Diagnosis Primary Impression: Elevated serum hCG Additional Impression: Hypertension Qualified Codes: I10 - Essential (primary) hypertension [facility]: [facility] Patient Instructions: General Instructions Additional Instructions: Please follow up with your child welfare social worker for recheck of your HCG levels. Return for any worsening of your condition. Disposition: 01 DISCHARGE HOME Condition: Stable Belinda Espinal Jul 12, 2017 18:40
[2017-07-12 19:28] LABS: AUTOMATED NEUTROPHIL # 7.4 TH/MM3 (1.8-7.7); BASOPHIL # 0.1 TH/MM3 (0-0.2); BASOPHIL % 0.6 % (0.0-2.0); EOSINOPHIL # 0.4 TH/MM3 (0-0.4); EOSINOPHIL % 3.4 % (0.0-4.0); HEMATOCRIT 40.3 % (35.0-46.0); HEMO FLAGS DIFF FINAL; LYMPH % 31.8 % (9.0-44.0); LYMPHOCYTE # 3.9 TH/MM3 (1.0-4.8); MEAN CELL VOLUME 79.4 FL (80.0-100.0); MEAN CORPUSCULAR HEMOGLOBIN 26.8 PG (27.0-34.0); MEAN CORPUSCULAR HGB CONC 33.7 % (32.0-36.0); MONO % 4.5 % (0.0-8.0); NEUT % 59.7 % (16.0-70.0); PLATELET COUNT 311 TH/MM3 (150-450); RED BLOOD COUNT 5.08 MIL/MM3 (4.00-5.30); RED CELL DISTRIBUTION WIDTH 12.9 % (11.6-17.2); WHITE BLOOD COUNT 12.3 TH/MM3 (4.0-11.0)
[2017-07-12 19:51] LABS: BICARBONATE 26.1 MEQ/L (21.0-32.0); POTASSIUM 3.7 MEQ/L (3.5-5.1)
[2017-07-12 20:00] VITALS: BP 108/71; PULSE 73; RESP 16; O2SAT 98
--- NOTE | 2017-07-12 20:39 | RADRPT ---
EXAM DATE/TIME: 07/12/2017 19:52 [facility] COMPARISON: CT ABDOMEN & PELVIS W/O CONTRAST, January 22, 2015, 3:03. [facility], US TRANSVAGINAL, February 13, 2015 INDICATIONS : Pelvic pain. MEDICAL HISTORY : Hypertension. Hypercholesterolemia. Asthma. Ovarian cysts. Preeclampsia. SURGICAL HISTORY : Dilation curettage. . ENCOUNTER: Initial ACUITY: 3 days PAIN SCORE: 3/10 LOCATION: Bilateral pelvis MEASUREMENTS: UTERUS: 7.5 x 5.1 x 4.1 cm ENDOMETRIAL STRIPE: 9 mm RIGHT OVARY: 3.5 x1.7 x 1.9 cm LEFT OVARY: 2.6 x 1.9 x 2.0 cm FINDINGS: UTERUS: The myometrium has homogeneous echotexture without mass. RIGHT OVARY: Ovary contains no mass or significant cystic lesion. Follicles are present. Blood flow is documented . LEFT OVARY: Ovary contains no mass or significant cystic lesion. Follicles are present. Blood flow is documented . MISCELLANEOUS: No free fluid. CONCLUSION: Normal transabdominal pelvis ultrasound. Bimal Anna MD on July 12, 2017 at 20:36 Board Certified Radiologist. This report was verified electronically.
== END 2017-07-12 21:27 | disposition home or self-care (01) ==
LOC: NEPD 15:25
DX: I10 Essential (primary) hypertension (principal); F17.200 Nicotine dependence, unspecified, uncomplicated; Z79.899 Other long term (current) drug therapy
CPT/HCPCS: 76856; 80048; 81001; 83735; 84702; 84703; 85025; 93975; 99284

== ENCOUNTER → 2018-01-12 | Outpatient (CLI) | payer OTHER ==
[~2018-01-12] MED LIST changes: +IBUP1TAB5 PO; -IBUP400T20 PO; -ULTR50TA5 PO
== END ==
LOC: HPND 10:02
PROVIDERS: ATTEND Obstetrics & Gynecology
DX: O10.012 Pre-existing essential hypertension complicating pregnancy, second trimester (principal); O09.292 Supervision of pregnancy with other poor reproductive or obstetric history, second trimester
CPT/HCPCS: 76805

== ENCOUNTER 2018-02-09 22:51 | Emergency (ER) | payer OTHER ==
[~2018-02-09] VITALS: Ht 165.1 cm; Wt 84.0 kg
--- NOTE | 2018-02-09 23:39 | PD ---
HPI Chief Complaint Confusion, SOB, swelling Travel History International Travel<30 Days: No Contact w/Intl Traveler<30Days: No Known Affected Area: No History of Present Illness HPI 27-year-old , IUP 18.5 care complicated by history of chronic hypertension, heart murmur, anxiety, depression, tobacco use, Lorazepam use The patient presents complaining of a myriad of symptoms. She reports that her left hand tingling has been tingling today. She reports a sudden spike in her blood pressure at home to 160/102. She reports that she has a history of HELLP that resulted in a ICU stay. She reports that she felt a weird pain in her upper abdomen that caused her to lay in the position earlier this afternoon, but it resolved quickly and she no longer has that pain. She reports that she has significant lower extremity swelling. She reports that at 1 PM she felt her chest pounding at home. She reports that she has been feeling confused since this afternoon, including the inability to remember anything. She reports that this started at 12 to 1 PM, and included an episode where she was confused and did not know what was going on. She reports that she had an associated feeling of drowsiness and felt just off in addition to being confused. There were no aggravating or alleviating factors to these concerns except as otherwise noted. There have been no attempted treatments. She denies any leaking of fluid or vaginal bleeding. She denies any cramping or painful contractions. She reports normal movement today. The patient also reports that she is having shortness of breath and is having difficulty breathing. Weeks Gestation: 18 Para: 1 : 3 History Past Medical History Narrative Medical Heart murmur Chronic hypertension Anxiety Depression Tobacco use Obstetric History Obstetric History Colposcopy for history of abnormal Pap, EAB 1, 1 Past Surgical History Narrative Surgical Colposcopy D&C Family History Narrative Family History Diabetes, hypertension, lymphoma, lung cancer, CVA, AL, CAD, HTN Social History Alcohol Use: No Tobacco Use: Yes Substance Abuse: No Allergies-Medications (Allergen,Severity, Reaction): Coded Allergies: clarithromycin (Unverified Allergy, Severe, Eye dilation , 09/13/17) Had to wear sunglasses outdoors and school. As well as indoors latex (Unverified Allergy, Severe, rash, 09/13/17) ciprofloxacin (Unverified Allergy, Intermediate, vomiting/jittery, ) GI diatrizoate meglumine (Unverified Allergy, Unknown, Doesn't recall reaction , 09/13/17) She doesn't remember at all. had an MRI as a child. Looking for brain tumors. doxycycline (Unverified Allergy, Unknown, 09/13/17) DOES NOT RECALL gadobenic acid (Unverified Allergy, Unknown, Doesn't recall reaction , ) She doesn't remember at all. had an MRI as a child. Looking for brain tumors. gadodiamide (Unverified Allergy, Unknown, Doesn't recall reaction , ) She doesn't remember at all. had an MRI as a child. Looking for brain tumors. gadoteridol (Unverified Allergy, Unknown, Doesn't recall reaction , ) She doesn't remember at all. had an MRI as a child. Looking for brain tumors. iodixanol (Unverified Allergy, Unknown, Doesn't recall reaction , 09/13/17 ) She doesn't remember at all. had an MRI as a child. Looking for brain tumors. iohexol (Unverified Allergy, Unknown, Doesn't recall reaction , 09/13/17) She doesn't remember at all. had an MRI as a child. Looking for brain tumors. labetalol (Verified Allergy, Unknown, 09/13/17) penicillin G (Unverified Adverse Reaction, Severe, Hives , 09/13/17) sertraline (Unverified Adverse Reaction, Severe, Deep depression. , ) Lost 60 pounds. Recurring infection Home Meds Active Scripts Metoprolol Tartrate (Metoprolol Tartrate) 50 Mg Tab, 50 MG PO BID, #60 TAB 0 Refills Please send copy of your recent labs prior to more refills. Last set of labs we have are from 2014 Prov:Cortney Douglas 12/07/16 Reported Medications Lorazepam (Lorazepam) 2 Mg Tab, 2 MG PO Q6H Y for ANXIETY, TAB 0 Refills 12/08/16 Discontinued Reported Medications Ibuprofen (Ibuprofen) 400 Mg Tab, 400 MG PO DAILY, TAB 0 Refills 04/02/17 Review of Systems Except as stated in HPI: all other systems reviewed are Neg (All pertinent positives are reported in the HPI) Physical Exam Narrative GENERAL: Well-nourished, well-developed patient. SKIN: Warm and dry. HEAD: Normocephalic and atraumatic. EYES: No scleral icterus. No injection or drainage. ENT: No nasal drainage noted. Mucous membranes pink. Airway patent. NECK: Supple, trachea midline. No JVD. CARDIOVASCULAR: Regular rate and rhythm without murmurs, gallops, or rubs. RESPIRATORY: Breath sounds equal bilaterally. No accessory muscle use. BREASTS: Deferred ABDOMEN/GI: Abdomen soft, non-tender, bowel sounds present, no rebound, no guarding Gravid GENITOURINARY: Deferred Uterine Contractions: None FHT's: Heart tones by Doppler 140s EXTREMITIES: No cyanosis or edema, no edema noted lower extremities.. BACK: Nontender without obvious deformity. NEUROLOGICAL: Awake and alert. Motor and sensory grossly within normal limits. Normal speech. Musculoskeletal: Gross motion, gait, strength Psychiatric: Grossly MDM Plan Assessment/plan: 1. IUP at 18.5 2. Reported history of preeclampsia: Patient is concerned about preeclampsia today, she has no symptoms at this time. Her blood pressures are normal. Discussed hypertension vs preeclampsia. Discussed that preeclampsia typically occurs later in and in generally not seen under 20 weeks gestational age. All of her questions were answered. Patient will have UA in ED, will follow up on results. 3. Confusion: discussed this symptom needs to be evaluated in the ED and the inability to recall details is not typical. The patient is in agreement and will be taken to ED for further evaluation. 4. SOB: the patient does not appear to be SOB, will have evaluated in ED 5. Anxiety: patient taking ativan 2mg QID 6. wellbeing: FHT appropriate for gestational age 7. Chronic HTN: BP stable and normal, continue metroprolol 8. Depression 9. Tobacco use 10. F/U with primary ob in 2-3d or sooner if needed Jacque Trejo MD Feb 09, 2018 23:39
[2018-02-10 00:19] VITALS: BP 119/79; PULSE 79; RESP 18; TEMP 98.3; O2SAT 100
--- NOTE | 2018-02-10 00:44 | PD ---
Physical Exam Date Seen by Provider: Feb 10, 2018 Time Seen by Provider: 00:30 Narrative Patient is a 27-year-old female who is 18 weeks . She apparently went up to BOOK CUTTER because she was worried about having preeclampsia. Patient is short of breath and she says today her and her and family were walking all around then she felt wiped out took her pressure at home and it was 160 systolic patient has a history of preeclampsia and help syndrome 5 years ago with her child who is bedside. Patient says she feels like she cannot get enough breath and she also feels confused altered mentally and is worried she could be having the beginnings of preeclampsia as well. She denies abdominal pain she denies contraction she denies blood from her vagina no complications with her . Today she had 2 different ultrasounds. One was a routine 3D ultrasound which showed a normal heart at a rate of 130 and she had a high risk ultrasound that was scheduled as well. Apparently she said they were pushing hard on her abdomen with the probe trying to turn the baby per patient patient was upstairs seen by Dr. Trejo the BOOK CUTTER and sent back down to the ER for further evaluation. From a gynecological OB point of view she has no further need apparently for the BOOK CUTTER intervention urine is sent lab work is sent patient's blood pressure is 119/79 her heart rate is 90 Data Data Last Documented VS Vital Signs Date Time Temp Pulse Resp B/P (MAP) Pulse Ox O2 Delivery O2 Flow Rate FiO2 02/10/18 09:50 97.8 81 16 116/81 (93) 99 02/10/18 07:00 Room Air Orders Orders Complete Blood Count With Diff (02/10/18 00:18) Comprehensive Metabolic Panel (02/10/18 00:18) Lipase (02/10/18 00:18) Urinalysis - C+S If Indicated (02/10/18 00:18) Drug Screen, Random Urine (02/10/18 00:18) Alcohol (Ethanol) (02/10/18 00:18) Salicylates (Aspirin) (02/10/18 00:18) Tylenol (Acetaminophen) (02/10/18 00:18) Sodium Chlor 0.9% 1000 Ml Inj (Ns 1000 M (02/10/18 02:00) Sodium Chlorid 0.9% 500 Ml Inj (Ns 500 M (02/10/18 04:00) Us Leg Venous Doppler Bilat (02/10/18 ) Electrocardiogram (02/10/18 02:38) Ed Discharge Order (02/10/18 09:36) Labs Laboratory Tests Test 02/10/18 00:36 White Blood Count 13.8 TH/MM3 Red Blood Count 4.23 MIL/MM3 Hemoglobin 11.2 GM/DL Hematocrit 33.2 % Mean Corpuscular Volume 78.4 FL Mean Corpuscular Hemoglobin 26.4 PG Mean Corpuscular Hemoglobin Concent 33.6 % Red Cell Distribution Width 13.5 % Platelet Count 286 TH/MM3 Mean Platelet Volume 7.6 FL Neutrophils (%) (Auto) 71.3 % Lymphocytes (%) (Auto) 22.4 % Monocytes (%) (Auto) 4.0 % Eosinophils (%) (Auto) 2.0 % Basophils (%) (Auto) 0.3 % Neutrophils # (Auto) 9.8 TH/MM3 Lymphocytes # (Auto) 3.1 TH/MM3 Monocytes # (Auto) 0.5 TH/MM3 Eosinophils # (Auto) 0.3 TH/MM3 Basophils # (Auto) 0.0 TH/MM3 CBC Comment DIFF FINAL Differential Comment Urine Color LIGHT-YELLOW Urine Turbidity CLEAR Urine pH 7.0 Urine Specific [place] 1.004 Urine Protein NEG mg/dL Urine Glucose (UA) NEG mg/dL Urine Ketones NEG mg/dL Urine Occult Blood NEG Urine Nitrite NEG Urine Bilirubin NEG Urine Urobilinogen LESS THAN 2.0 MG/DL Urine Leukocyte Esterase SMALL Urine RBC 1 /hpf Urine WBC 1 /hpf Urine Squamous Epithelial Cells 4 /hpf Microscopic Urinalysis Comment CULT NOT INDICATED Blood Urea Nitrogen 6 MG/DL Creatinine 0.55 MG/DL Random Glucose 105 MG/DL Total Protein 6.9 GM/DL Albumin 3.1 GM/DL Calcium Level 9.2 MG/DL Alkaline Phosphatase 58 U/L Aspartate Amino Transf (AST/SGOT) 7 U/L Alanine Aminotransferase (ALT/SGPT) 12 U/L Total Bilirubin 0.1 MG/DL Sodium Level 141 MEQ/L Potassium Level 3.5 MEQ/L Chloride Level 107 MEQ/L Carbon Dioxide Level 23.3 MEQ/L Anion Gap 11 MEQ/L Estimat Glomerular Filtration Rate 131 ML/MIN Lipase 122 U/L Salicylates Level LESS THAN 1.7 MG/DL Urine Opiates Screen NEG Acetaminophen Level LESS THAN 2.0 MCG/ML Urine Barbiturates Screen NEG Urine Amphetamines Screen NEG Urine Benzodiazepines Screen NEG Urine Cocaine Screen NEG Urine Cannabinoids Screen NEG Ethyl Alcohol Level LESS THAN 3 MG/DL [facility] Medical Record Reviewed: Yes Supervised Visit with RAMONA: No Differential Diagnosis Patient is a 27-year-old female seen upstairs and BOOK CUTTER ruled out for any complications by Dr Trejo OB /MEDICAL COLLECTIONS REPRESENTATIVE MD and sent down to the ER .. differential diagnosis includes anxiety for which she is already on Ativan... she is taking Ativan through her entire . She said she took it for since she was 18yr old for anxiety and through her entire with her 5- year-old child .. There was no complications until post pre-eclampsia and HELLP . . Other differential diagnosis includes pulmonary embolism preeclampsia anxiety. UTI other Narrative Course Patient is observed all night on a cardiac rehabilitation program director and O2 sat monitor all night in the ER. I have given her IV fluid is given. Orthostatics are within normal limits. There is no change in heart rate. There is no drop in systolic blood pressure. Patient is reassured that her symptoms are benign. Patient is still convinced that she is short of breath and confused. I explained to her that she is early in her and this preeclampsia or HELLP is on very uncommon at this stage of ,,, usual until the end of her . Patient is on Ativan she has a history of having shortness of breath with her panic attack she reports. I will do an ultrasound in the morning DVT and discharge her home to follow-up as an outpatient she has been seen by Dr. Trejo the floor nurse and has been safe she had 2 ultrasounds today both had a heart rate of 130 which is within normal limits. Patient is observed all night in the ER there is no desaturation her oxygen saturation on room air is 100% her heart rate is 80 there is no signs of tachycardia or tachypnea and DVT is very low on the differential I am doing a lateral ultrasound to rule out any lower extremity DVT and she will be discharged follow -up as an outpatient urine is negative for protein urine is negative for infection she is safe for discharge, dvt STUDIES BILATERAL ARE NEGATIVE AND HER RISK FACTORS AND SYMPTOMS ARE WEIGHED AGINST NEED FOR FURTHER IMAGING AND POSSIBLE RADIATION EXPOSURE , OR MRI , I FEEL HER PRESENTATION AND VITAL SIGNS AND SYMPTOMS DO NOT INDICATE PE,, DVT LEGS RULE OUT . FOLLOW UP OUTPT Diagnosis Primary Impression: Anxiety about health Additional Impression: Patient Instructions: General Instructions, Shortness of Breath (ED) Departure Forms: Tests/Procedures Additional Instruction: RETURN FOR CONTRACTIONS, LOSS OF FLUID (WATER BREAKING), VAGINAL BLEEDING, OR DECREASED MOVEMENT DRINK 8-10 LARGE GLASSES OF WATER EVERY DAY KEEP SCHEDULED APPOINTMENT WITH YOUR PROVIDER Clyde Burger MD Feb 10, 2018 00:44
[2018-02-10 00:49] LABS: BILIRUBIN, URINE NEG (NEG); BLOOD, URINE NEG (NEG); GLUCOSE,URINE NEG (NEG); KETONE, URINE NEG (NEG); NITRITE,URINE NEG (NEG); SQUAMOUS EPITHELIAL CELL URINE 4 /hpf (0-5); URINE COLOR LIGHT-YELLOW (YELLW/STRAW); URINE LEUKOCYTE ESTERASE SMALL (NEG)
[2018-02-10 00:51] LABS: AUTOMATED NEUTROPHIL # 9.8 TH/MM3 (1.8-7.7); BASOPHIL % 0.3 % (0.0-2.0); EOSINOPHIL # 0.3 TH/MM3 (0-0.4); HEMATOCRIT 33.2 % (35.0-46.0); HEMOGLOBIN 11.2 GM/DL (11.6-15.3); LYMPH % 22.4 % (9.0-44.0); LYMPHOCYTE # 3.1 TH/MM3 (1.0-4.8); MEAN CELL VOLUME 78.4 FL (80.0-100.0); MEAN CORPUSCULAR HEMOGLOBIN 26.4 PG (27.0-34.0); MEAN CORPUSCULAR HGB CONC 33.6 % (32.0-36.0); MEAN PLATELET VOLUME 7.6 FL (7.0-11.0); MONOCYTE # 0.5 TH/MM3 (0-0.9); NEUT % 71.3 % (16.0-70.0); PLATELET COUNT 286 TH/MM3 (150-450); RED BLOOD COUNT 4.23 MIL/MM3 (4.00-5.30); RED CELL DISTRIBUTION WIDTH 13.5 % (11.6-17.2); WHITE BLOOD COUNT 13.8 TH/MM3 (4.0-11.0)
[2018-02-10 01:05] LABS: ACETAMINOPHEN LESS THAN 2.0 MCG/ML (10.0-30.0); ALBUMIN 3.1 GM/DL (3.4-5.0); ALT (GPT) 12 U/L (10-53); AST (GOT) 7 U/L (15-37); BICARBONATE 23.3 MEQ/L (21.0-32.0); BLOOD UREA NITROGEN 6 MG/DL (7-18); CALCIUM 9.2 MG/DL (8.5-10.1); CHLORIDE 107 MEQ/L (98-107); CREATININE 0.55 MG/DL (0.50-1.00); GLOMERULAR FILTRATION RATE 131 ML/MIN (>89); GLUCOSE,RANDOM 105 MG/DL (74-106); SODIUM (NA) 141 MEQ/L (136-145)
[2018-02-10 01:07] LABS: ALKALINE PHOSPHATASE 58 U/L (45-117); TOTAL BILIRUBIN ADULT 0.1 MG/DL (0.2-1.0); TOTAL PROTEIN 6.9 GM/DL (6.4-8.2)
[2018-02-10] MEDS ORDERED: SODIUM CHLOR 0.9% 1000 ML INJ 1,000 ML IV ONE (02:00)
[2018-02-10 02:39] VITALS: BP 118/56; PULSE 98; RESP 18; O2SAT 100
[2018-02-10 02:42] VITALS: BP 125/58; PULSE 98; RESP 18
[2018-02-10 02:44] VITALS: BP 137/65; PULSE 99; RESP 18; O2SAT 100
[2018-02-10] MEDS ORDERED: SODIUM CHLORID 0.9% 500 ML INJ 500 ML IV ONE (04:00)
[2018-02-10 06:26] VITALS: BP 113/56; PULSE 86; RESP 18; O2SAT 99
--- NOTE | 2018-02-10 08:49 | PD ---
Physical Exam Narrative Patient was seen by ED physician and signed out to me. Data Data Last Documented VS Vital Signs Date Time Temp Pulse Resp B/P (MAP) Pulse Ox O2 Delivery O2 Flow Rate FiO2 02/10/18 07:00 89 17 99 Room Air 02/10/18 06:26 113/56 (75) 02/10/18 00:19 98.3 Orders Orders Complete Blood Count With Diff (02/10/18 00:18) Comprehensive Metabolic Panel (02/10/18 00:18) Lipase (02/10/18 00:18) Urinalysis - C+S If Indicated (02/10/18 00:18) Drug Screen, Random Urine (02/10/18 00:18) Alcohol (Ethanol) (02/10/18 00:18) Salicylates (Aspirin) (02/10/18 00:18) Tylenol (Acetaminophen) (02/10/18 00:18) Sodium Chlor 0.9% 1000 Ml Inj (Ns 1000 M (02/10/18 02:00) Sodium Chlorid 0.9% 500 Ml Inj (Ns 500 M (02/10/18 04:00) Us Leg Venous Doppler Bilat (02/10/18 ) Electrocardiogram (02/10/18 02:38) Labs Laboratory Tests Test 02/10/18 00:36 White Blood Count 13.8 TH/MM3 Red Blood Count 4.23 MIL/MM3 Hemoglobin 11.2 GM/DL Hematocrit 33.2 % Mean Corpuscular Volume 78.4 FL Mean Corpuscular Hemoglobin 26.4 PG Mean Corpuscular Hemoglobin Concent 33.6 % Red Cell Distribution Width 13.5 % Platelet Count 286 TH/MM3 Mean Platelet Volume 7.6 FL Neutrophils (%) (Auto) 71.3 % Lymphocytes (%) (Auto) 22.4 % Monocytes (%) (Auto) 4.0 % Eosinophils (%) (Auto) 2.0 % Basophils (%) (Auto) 0.3 % Neutrophils # (Auto) 9.8 TH/MM3 Lymphocytes # (Auto) 3.1 TH/MM3 Monocytes # (Auto) 0.5 TH/MM3 Eosinophils # (Auto) 0.3 TH/MM3 Basophils # (Auto) 0.0 TH/MM3 CBC Comment DIFF FINAL Differential Comment Urine Color LIGHT-YELLOW Urine Turbidity CLEAR Urine pH 7.0 Urine Specific [place] 1.004 Urine Protein NEG mg/dL Urine Glucose (UA) NEG mg/dL Urine Ketones NEG mg/dL Urine Occult Blood NEG Urine Nitrite NEG Urine Bilirubin NEG Urine Urobilinogen LESS THAN 2.0 MG/DL Urine Leukocyte Esterase SMALL Urine RBC 1 /hpf Urine WBC 1 /hpf Urine Squamous Epithelial Cells 4 /hpf Microscopic Urinalysis Comment CULT NOT INDICATED Blood Urea Nitrogen 6 MG/DL Creatinine 0.55 MG/DL Random Glucose 105 MG/DL Total Protein 6.9 GM/DL Albumin 3.1 GM/DL Calcium Level 9.2 MG/DL Alkaline Phosphatase 58 U/L Aspartate Amino Transf (AST/SGOT) 7 U/L Alanine Aminotransferase (ALT/SGPT) 12 U/L Total Bilirubin 0.1 MG/DL Sodium Level 141 MEQ/L Potassium Level 3.5 MEQ/L Chloride Level 107 MEQ/L Carbon Dioxide Level 23.3 MEQ/L Anion Gap 11 MEQ/L Estimat Glomerular Filtration Rate 131 ML/MIN Lipase 122 U/L Salicylates Level LESS THAN 1.7 MG/DL Urine Opiates Screen NEG Acetaminophen Level LESS THAN 2.0 MCG/ML Urine Barbiturates Screen NEG Urine Amphetamines Screen NEG Urine Benzodiazepines Screen NEG Urine Cocaine Screen NEG Urine Cannabinoids Screen NEG Ethyl Alcohol Level LESS THAN 3 MG/DL MDM Supervised Visit with RAMONA: No Interpretation(s) 8:46 AM. CBC WBC 13.8. Hemoglobin 11.2 hematocrit 33.2. MCV 78.4. 71 neutrophil. CMP within normal limits. Urine drug screen negative. Acetaminophen and salicylate level normal. Alcohol negative. UA is negative. Narrative Course Patient was seen by OB physician and cleared for medical management. Doppler study lower extremity negative for DVT. Diagnosis Primary Impression: Anxiety about health Additional Impression: Qualified Codes: Z3A.19 - 19 weeks gestation of Patient Instructions: General Instructions, Shortness of Breath (ED) Departure Forms: Tests/Procedures Additional Instruction: RETURN FOR CONTRACTIONS, LOSS OF FLUID (WATER BREAKING), VAGINAL BLEEDING, OR DECREASED MOVEMENT DRINK 8-10 LARGE GLASSES OF WATER EVERY DAY KEEP SCHEDULED APPOINTMENT WITH YOUR PROVIDER Disposition: 01 DISCHARGE HOME Condition: Stable Hasmukh Corona MD Feb 10, 2018 08:49
--- NOTE | 2018-02-10 09:01 | RADRPT ---
EXAM DATE/TIME: 02/10/2018 08:23 [facility] COMPARISON: No previous studies available for comparison. INDICATIONS : Bilateral ankle swelling. MEDICAL HISTORY : Hypertension. 18 weeks . Asthma. Pnemonia. Ovarian cysts. Depression. Anxiety. SURGICAL HISTORY : Dilation and curettage. ENCOUNTER: Subsequent ACUITY: 1 day PAIN SCORE: 0/10 LOCATION: Bilateral legs. TECHNIQUE: Venous ultrasound of the left and right leg was performed from the inguinal ligament to the proximal calf. Real-time, color Doppler and spectral tracing, compression and augmentation techniques were us ed. FINDINGS: RIGHT LEG: There is normal compressibility of the deep venous system from the inguinal region to the proximal ca lf. No echogenic clot is seen in the lumen of the common femoral, femoral, popliteal, and posterior tibial veins. There is a normal response of the venous system to proximal and distal augmentation an d respiration. LEFT LEG: There is normal compressibility of the deep venous system from the inguinal region to the proximal ca lf. No echogenic clot is seen in the lumen of the common femoral, femoral, popliteal, and posterior tibial veins. There is a normal response of the venous system to proximal and distal augmentation an d respiration. CONCLUSION: No evidence of deep venous thrombosis within the lower extremities. Stanford Vasquez MD on February 10, 2018 at 8:58 Board Certified Radiologist. This report was verified electronically.
[2018-02-10 09:50] VITALS: BP 116/81; TEMP 97.8
--- NOTE | 2018-02-10 16:22 | EKG ---
Date Performed: 02/10/2018 Time Performed: 02:38:12 PTAGE: 27 years EKG: Sinus rhythm NONSPECIFIC T-WAVE ABNORMALITY BORDERLINE ECG NO PREVIOUS TRACING DOCTOR: Nakul Michaud Interpretating Date/Time 02/10/2018 16:16:39
== END 2018-02-10 09:50 | disposition home or self-care (01) ==
LOC: HOBED 22:51 → NEPC 02-10 09:50
DX: O99.342 Other mental disorders complicating pregnancy, second trimester (principal); F41.9 Anxiety disorder, unspecified; O16.2 Unspecified maternal hypertension, second trimester; R41.0 Disorientation, unspecified; R06.02 Shortness of breath; R94.31 Abnormal electrocardiogram [ECG] [EKG]; M79.89 Other specified soft tissue disorders; Z3A.19 19 weeks gestation of pregnancy; Z72.0 Tobacco use; Z88.0 Allergy status to penicillin; Z79.899 Other long term (current) drug therapy
CPT/HCPCS: 80053; 80307; 81001; 83690; 85025; 93005; 93970; 96360; 96361; 99284; J7030; J7040

== ENCOUNTER → 2018-02-09 | Outpatient (CLI) | payer OTHER | LOC: HPND 11:13 | PROVIDERS: ATTEND Obstetrics & Gynecology | DX: O10.012 Pre-existing essential hypertension complicating pregnancy, second trimester (principal); O99.342 Other mental disorders complicating pregnancy, second trimester; O09.292 Supervision of pregnancy with other poor reproductive or obstetric history, second trimester | CPT/HCPCS: 76811 ==

== ENCOUNTER → 2018-03-16 | Outpatient (CLI) | payer OTHER ==
[~2018-03-16] MED LIST changes: -IBUP1TAB5 PO
== END ==
LOC: HPND 11:13
PROVIDERS: ATTEND Obstetrics & Gynecology
DX: O99.342 Other mental disorders complicating pregnancy, second trimester (principal); O10.012 Pre-existing essential hypertension complicating pregnancy, second trimester; O09.892 Supervision of other high risk pregnancies, second trimester
CPT/HCPCS: 76816

== ENCOUNTER 2018-04-01 14:32 | Emergency (ER) | payer OTHER ==
--- NOTE | 2018-04-01 15:32 | PD ---
HPI Chief Complaint Complains of itching head to toe with itching on her palms and soles of her feet itching is worse at night, complains of some cramping swelling in her legs which she describes as pitting swelling in her legs Date Seen: Apr 01, 2018 Time Seen: 15:25 Travel History International Travel<30 Days: No Contact w/Intl Traveler<30Days: No Known Affected Area: No History of Present Illness HPI Patient is 27-year-old white female at 26 weeks who presents complaining of some abdominal cramping swelling in her legs she describes as pitting swelling in her legs and itching all over from head to toe for several weeks worse at night with itching on her palms of her hands and soles of her feet. She is only taken Benadryl for this. She denies bleeding leakage of fluid but does claim to have some right upper quadrant pain as well in the last day or 2. Baby is active. 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 As well as indoors latex (Verified Allergy, Severe, rash, 04/01/18) ciprofloxacin (Verified Allergy, Intermediate, vomiting/jittery, 04/01/18) GI diatrizoate meglumine (Verified Allergy, Unknown, Doesn't recall reaction , 04/01/18) She doesn't remember at all. had an MRI as a child. Looking for brain tumors. doxycycline (Verified Allergy, Unknown, 04/01/18) DOES NOT RECALL gadobenic acid (Verified Allergy, Unknown, Doesn't recall reaction , ) She doesn't remember at all. had an MRI as a child. Looking for brain tumors. gadodiamide (Verified Allergy, Unknown, Doesn't recall reaction , 04/01/18) She doesn't remember at all. had an MRI as a child. Looking for brain tumors. gadoteridol (Verified Allergy, Unknown, Doesn't recall reaction , 04/01/18) She doesn't remember at all. had an MRI as a child. Looking for brain tumors. iodixanol (Verified Allergy, Unknown, Doesn't recall reaction , 04/01/18) She doesn't remember at all. had an MRI as a child. Looking for brain tumors. iohexol (Verified Allergy, Unknown, Doesn't recall reaction , 04/01/18) She doesn't remember at all. had an MRI as a child. Looking for brain tumors. labetalol (Verified Allergy, Unknown, 09/13/17) penicillin G (Verified Adverse Reaction, Severe, Hives , 04/01/18) sertraline (Verified Adverse Reaction, Severe, Deep depression. , 04/01/18) Lost 60 pounds. Recurring infection Home Meds Active Scripts Metoprolol Tartrate (Metoprolol Tartrate) 50 Mg Tab, 50 MG PO BID, #60 TAB 0 Refills Please send copy of your recent labs prior to more refills. Last set of labs we have are from 2014 Prov:Cortney Douglas 12/07/16 Reported Medications Lorazepam (Lorazepam) 2 Mg Tab, 2 MG PO Q6H Y for ANXIETY, TAB 0 Refills 12/08/16 Review of Systems General / Constitutional: No: Fever, Weight Gain, Chills, Other Eyes: No: Diploplia, Blurred Vision, Visual changes, Pain, Photophobia HENT: No: Headaches, Vertigo, Lightheadedness Cardiovascular: No: Irregular Rhythm, Chest Pain or Discomfort, Palpitations, Tachycardia, Syncope, Varicosities, Edema, Cyanosis Respiratory: No: Cough, Short of Breath, Other Gastrointestinal: Abdominal Pain, No: Nausea, Vomiting, Diarrhea Genitourinary: No: Decreased Urinary Output, Oliguria Musculoskeletal: No: Limited ROM, Weakness, Cramping, Edema, Pain Skin: No Rash, Itching, No Dryness, No Lumps, No Change in Pigmentation, No Change in Nails, No Alopecia, No Lesions Neurologic: No: Weakness, Dizziness, Syncope, Focal Abnormalities, Coordination Problem, Headache, Slurred Speech, Seizures Psychiatric: No: Depression, Suicidal Ideations, Homicidal Ideation Endocrine: No: Heat Intolerance, Cold Intolerance, Polydipsia, Polyuria, Other Physical Exam Narrative GENERAL: Well-nourished, well-developed patient. SKIN: Warm and dry. HEAD: Normocephalic and atraumatic. EYES: No scleral icterus. No injection or drainage. ENT: No nasal drainage noted. Mucous membranes pink. Airway patent. NECK: Supple, trachea midline. No JVD. CARDIOVASCULAR: Regular rate and rhythm without murmurs, gallops, or rubs. RESPIRATORY: Breath sounds equal bilaterally. No accessory muscle use. BREASTS: Bilateral exam showed no masses , no retractions, no nipple discharge. ABDOMEN/GI: Abdomen soft, -tender in RUQ, bowel sounds present, no rebound, no guarding Gravid to [-27] weeks size Fundal Height: [27-] GENITOURINARY: External Genitalia: intact and normal in appearance Cervix: [post-] Dilatation: [-0] Effacement: [0-] Station: [-3] Membranes: [intact ] Uterine Contractions: [none-] FHT's: Category: [1-] Baseline: [-133] Reactive: [R-] Variability: [mod-] Decels: [0-] EXTREMITIES: No cyanosis or edema. No pitting edema seen in the pretibial area BACK: Nontender without obvious deformity. No CVA tenderness. NEUROLOGICAL: Awake and alert. Motor and sensory grossly within normal limits. Five out of 5 muscle strength in all muscle groups. Normal speech. Data Data Orders Orders Vital Signs (Adult) .ON ADMISSION (04/01/18 15:25) ^ Labor Status (04/01/18 15:25) Urinalysis - C+S If Indicated (04/01/18 15:25) ^ Non Stress Test (04/01/18 15:25) ^ Hydration (04/01/18 15:25) Cbc No Diff, Includes Plts (04/01/18 15:25) Comprehensive Metabolic Panel (04/01/18 15:25) Uric Acid (04/01/18 15:25) Bile Acids Total (04/01/18 15:26) Labs Urine dip on OB ED is negative except for moderate leukocytes PIH lab all within normal limits, normal liver functions, normal urinalysis no protein in urine MDM Interpretation(s) Patient is 27-year-old white female [address] Lindsay for care and presents complaining of itching all over especially on the bottoms of her feet and her hands and worsening at night all very consistent with cholestasis of signs and symptoms. We will draw bile acids and those are pending at the time I wanted to start the patient on ursodiol but she does not really want take any medicine for this at this time she will talk Dr. Lindsay and I think that is fine Plan Plan for the patient be home at bedrest, Tylenol for pain, calamine lotion for itching and continue Benadryl or some other antihistamine as needed and follow- up with Dr. Lindsay on Wednesday when she scheduled for a visit Diagnosis Diagnosis: Primary Impression: Cramping affecting , antepartum Additional Impressions: Itching 26 weeks gestation of Disposition: DISCHARGE HOME Condition: Stable Josue Mendoza II, MD Apr 01, 2018 15:32
[2018-04-01 15:58] LABS: AMORPHOUS SEDIMENT, URINE RARE; BILIRUBIN, URINE NEG (NEG); BLOOD, URINE NEG (NEG); GLUCOSE,URINE NEG (NEG); KETONE, URINE NEG (NEG); NITRITE,URINE NEG (NEG); SQUAMOUS EPITHELIAL CELL URINE 8 /hpf (0-5); URINE COLOR YELLOW (YELLW/STRAW); URINE LEUKOCYTE ESTERASE LARGE (NEG)
[2018-04-01 15:58] LABS: HEMATOCRIT 30.5 % (35.0-46.0); HEMOGLOBIN 10.3 GM/DL (11.6-15.3); MEAN CELL VOLUME 77.6 FL (80.0-100.0); MEAN CORPUSCULAR HEMOGLOBIN 26.1 PG (27.0-34.0); MEAN CORPUSCULAR HGB CONC 33.7 % (32.0-36.0); MEAN PLATELET VOLUME 7.3 FL (7.0-11.0); PLATELET COUNT 287 TH/MM3 (150-450); RED BLOOD COUNT 3.94 MIL/MM3 (4.00-5.30); RED CELL DISTRIBUTION WIDTH 13.7 % (11.6-17.2); WHITE BLOOD COUNT 12.1 TH/MM3 (4.0-11.0)
[2018-04-01 16:26] LABS: ALBUMIN 2.9 GM/DL (3.4-5.0); AST (GOT) 6 U/L (15-37); BICARBONATE 23.7 MEQ/L (21.0-32.0); BLOOD UREA NITROGEN 7 MG/DL (7-18); CALCIUM 8.8 MG/DL (8.5-10.1); CHLORIDE 106 MEQ/L (98-107); CREATININE 0.45 MG/DL (0.50-1.00); GLOMERULAR FILTRATION RATE 165 ML/MIN (>89); SODIUM (NA) 140 MEQ/L (136-145)
[2018-04-01 16:29] LABS: TOTAL BILIRUBIN ADULT 0.2 MG/DL (0.2-1.0)
[2018-04-01 16:42] LABS: GLUCOSE,RANDOM 96 MG/DL (74-106)
[2018-04-01 17:26] LABS: ALT (GPT) 10 U/L (10-53); TOTAL PROTEIN 6.7 GM/DL (6.4-8.2)
[2018-04-01 19:57] LABS: ALKALINE PHOSPHATASE 68 U/L (45-117)
== END 2018-04-01 17:36 | disposition home or self-care (01) ==
LOC: HOBED 14:32
DX: O26.892 Other specified pregnancy related conditions, second trimester (principal); R10.11 Right upper quadrant pain; L29.9 Pruritus, unspecified; Z3A.26 26 weeks gestation of pregnancy
CPT/HCPCS: 80053; 81001; 82239; 84550; 85027; 99283

== ENCOUNTER → 2018-04-13 | Outpatient (CLI) | payer OTHER | LOC: HPND 11:20 | PROVIDERS: ATTEND Obstetrics & Gynecology | DX: O26.612 Liver and biliary tract disorders in pregnancy, second trimester (principal); O10.012 Pre-existing essential hypertension complicating pregnancy, second trimester; O09.892 Supervision of other high risk pregnancies, second trimester; O99.342 Other mental disorders complicating pregnancy, second trimester | CPT/HCPCS: 76816; 76818 ==

== ENCOUNTER 2018-05-18 00:04 | Inpatient (IN) ==
--- NOTE | 2018-05-18 01:13 | ED ---
History of Present Illness Primary Care Physician: UNKNOWN Chief Complaint: Contractions History of Present Illness: 27-year-old who is at 32 weeks 5 days comes in complaining of contractions since participating in coitus approximately 2 hours ago. Prior to sexual activity patient had no complaints but states that immediate DrChula ramos sexual activity started having contractions both in the abdomen that radiates to her back or at least moderate in degree and have a pain level 7 out of 10. Patient states that with this she has some chronic hypertension which is under good control on metoprolol, chronic anxiety for which she takes Ativan and a diagnosis of acute cholestasis in treated with ursodiol 300 mg 3 times daily. Patient is on aspirin due to a previous complicated by preeclampsia. She states that she had HELLP syndrome but I find no evidence of anything other than hypertension and reviewing her chart. Patient appears to be quite distressed. Weeks Gestation:: 32 Para: 1 : 3 Review of Systems All other systems reviewed negative except as stated in HPI [facility], [facility] - Medical History Medical History: Medical History (Last Updated 05/18/18 @ 01:08 by Jessica cAeves MD) Anxiety (Acute) Cholestasis during in third trimester (Acute) History of pre-eclampsia in prior , currently in third trimester History of pre-eclampsia in prior , currently in third trimester - Surgical History Surgical History: Surgical History (Last Updated 05/10/18 @ 12:55 by Jerry Sierra MD) No history of previous surgery (Acute) - Tobacco History Second Hand Smoke Exposure: No Smoking Status: Light tobacco smoker - Alcohol History How Often Do You Have a Drink Containing Alcohol: Never - Substance Use History Substance History: No History of Abuse - Travel History History of Recent Travel: No Recent Travel in the [place] Within the Last 8 Weeks: No Recent Travel Out of the Country Within the Last 8 Weeks: No Medications and Allergies Allergies Allergy/AdvReac Type Severity Reaction Status Date / Time clarithromycin Allergy Severe Eye Verified 05/10/18 13:43 dilation latex Allergy Severe rash Verified 05/10/18 13:43 ciprofloxacin Allergy Intermediate vomiting/ji Verified 05/10/18 13:43 ttery diatrizoate meglumine Allergy Unknown Doesn't Verified 05/10/18 13:43 recall reaction doxycycline Allergy Unknown unknown Verified 05/10/18 13:43 gadobenic acid Allergy Unknown Doesn't Verified 05/10/18 13:43 recall reaction gadodiamide Allergy Unknown Doesn't Verified 05/10/18 13:43 recall reaction gadoteridol Allergy Unknown Doesn't Verified 05/10/18 13:43 recall reaction iodixanol Allergy Unknown Doesn't Verified 05/10/18 13:43 recall reaction iohexol Allergy Unknown Doesn't Verified 05/10/18 13:43 recall reaction labetalol Allergy Unknown unknown Verified 05/10/18 13:43 penicillin G AdvReac Severe Hives Verified 04/01/18 15:49 sertraline AdvReac Severe Deep Verified 04/01/18 15:49 depression. Home Medications Medication Instructions Recorded Confirmed Type aspirin 81 mg PO DAILY 04/27/18 04/27/18 History lorazepam 2 mg Q6-8H 04/27/18 04/27/18 History Exam Vital signs: Vital Signs 05/18/18 00:30 Temperature 98.7 F Pulse Rate 105 H Narrative: GENERAL: Well-nourished, well-developed patient. SKIN: Warm and dry. HEAD: Normocephalic and atraumatic. EYES: No scleral icterus. No injection or drainage. ENT: No nasal drainage noted. Mucous membranes pink. Airway patent. NECK: Supple, trachea midline. No JVD. CARDIOVASCULAR: Regular rate and rhythm without murmurs, gallops, or rubs. RESPIRATORY: Breath sounds equal bilaterally. No accessory muscle use. ABDOMEN/GI: Abdomen soft, non-tender, bowel sounds present, no rebound, no guarding Gravid to [-32] weeks size Fundal Height: [-] GENITOURINARY: External Genitalia: intact and normal in appearance BUS glands: [-Normal] Cervix: [-Posterior] Dilatation: [-Closed] Effacement: [-Long] Station: [-High] Presentation: [-Vertex] Membranes: [intact or ruptured] intact Uterine Contractions: [-] Uterine irritability with contractions every 5-10 minutes, mild to palpation FHT's: Category: [-1] Baseline: [-140] Reactive: [-Moderate] Variability: [Moderate-] Decels: [-Absent] EXTREMITIES: No cyanosis or edema. BACK: Nontender without obvious deformity. No CVA tenderness. NEUROLOGICAL: Awake and alert. Motor and sensory grossly within normal limits. Five out of 5 muscle strength in all muscle groups. Normal speech. Assessment and Plan - Diagnosis (1) 32 weeks gestation of Code(s): Z3A.32 - 32 weeks gestation of Status: Acute (2) Cholestasis during in third trimester Code(s): O26.613 - Liver and biliary tract disorders in , third trimester; K83.1 - Obstruction of bile duct Status: Acute (3) Chronic hypertension during , antepartum Code(s): O10.919 - Unspecified pre-existing hypertension complicating , unspecified trimester Status: Acute (4) Anxiety Code(s): F41.9 - Anxiety disorder, unspecified Status: Acute - Plan 27-year-old who is at 32 weeks 5 days with postcoital contractions. Patient is highly anxious regarding her contractions although there is no signs of labor at this time. I cannot perform a fibronectin due to her recent sexual activity. She recently had blood work for diagnosis and continued management of her cholestasis and is demonstrating normotensive pressures at this time Planned to keep her in house for 23 hour on labs due to her level of anxiety regarding her contractions Patient has a appointment to diagnostics in the morning for follow-up with perinatology Discharge Plan - Discharge Disposition Patient Disposition: 30 Still Patient - Discharge Condition Condition: Good - Physicians Team ED Provider: Jessica Aceves Primary Care Provider: UNKNOWN,
[2018-05-18] MEDS ORDERED: fentaNYL Citrate Inj 100 MCG/2 ML Ampul IV.PUSH PRN (01:17)
[2018-05-18] MEDS ORDERED: Acetaminophen 325 MG Tablet PO PRN (01:19)
[2018-05-18 01:33] LABS: Baso % (Auto) 0.3 % (0.0-2.0); Eos # (Auto) 0.2 th/mm3 (0.0-0.4); Eos % (Auto) 1.7 % (0.0-4.0); Hematocrit 30.6 % (35.0-46.0); Hemoglobin 10.3 gm/dL (11.6-15.3); Lymph # (Auto) 2.6 th/mm3 (1.0-4.8); Lymph % (Auto) 17.9 % (9.0-44.0); Mean Corpuscular HGB Conc 33.7 % (32.0-36.0); Mean Corpuscular Hemoglobin 25.5 pg (27.0-34.0); Mean Corpuscular Volume 75.8 fL (80.0-100.0); Mean Platelet Volume 7.1 fL (7.0-11.0); Mono # (Auto) 0.7 th/mm3 (0.0-0.9); Neut # (Auto) 10.8 th/mm3 (1.8-7.7); Neut % (Auto) 75.1 % (16.0-70.0); Platelet Count 300 th/mm3 (150-450); Red Blood Count 4.03 mil/mm3 (4.00-5.30); Red Cell Distribution Width 14.4 % (11.6-17.2); White Blood Count 14.4 th/mm3 (4.0-11.0)
[2018-05-18 01:44] LABS: Bilirubin,Urine Negative (Negative); Clarity,Urine Clear (Clear); Color,Urine Colorless (Yellw/Straw); Glucose,Urine (UA) Negative (Negative); Leukocyte Esterase,Urine Negative (Negative); Nitrite,Urine Negative (Negative); Specific Gravity,Urine 1.003 (1.002-1.035)
[2018-05-18 02:00] LABS: Amphetamine Screen,Urine Neg (Neg); Barbiturate Screen,Urine Neg (Neg); Cannabinoid Screen,Urine Neg (Neg); Cocaine Screen,Urine Neg (Neg)
[2018-05-18] MEDS ORDERED: LORazepam 1 MG Tablet PO SCH (02:00)
[2018-05-18 02:03] LABS: Alanine Aminotransferase 12 U/L (10-53); Albumin 2.8 g/dL (3.4-5.0); Aspartate Aminotransferase 9 U/L (15-37)
[2018-05-18 02:04] LABS: Alkaline Phosphatase 86 U/L (45-117); Total Protein 6.8 g/dL (6.4-8.2)
[2018-05-18 02:07] LABS: Opiate Screen,Urine Neg (Neg)
[2018-05-18] MEDS: LORazepam 1 MG Tablet PO SCH ×2 (08:00→13:01)
[2018-05-18] MEDS ORDERED: Metoprolol Tartrate 50 MG Tablet PO SCH (08:30)
--- NOTE | 2018-05-18 13:24 | P.OBANTE ---
Subjective Objective Vital Signs and I&O: Vital Signs 05/18/18 00:30 05/18/18 00:45 05/18/18 00:55 Temperature 98.7 F Pulse Rate 105 H 107 H Respiratory Rate 18 Blood Pressure 05/18/18 01:15 05/18/18 01:40 05/18/18 01:45 Temperature Pulse Rate 104 H 98 H Respiratory Rate 18 Blood Pressure 120/78 05/18/18 02:00 05/18/18 02:30 05/18/18 02:55 Temperature Pulse Rate 99 H 91 H 92 H Respiratory Rate 18 18 Blood Pressure 05/18/18 03:31 05/18/18 03:40 05/18/18 04:00 Temperature 98.0 F Pulse Rate 87 87 Respiratory Rate 18 18 Blood Pressure 124/76 05/18/18 04:50 05/18/18 04:55 05/18/18 05:20 Temperature Pulse Rate 102 H 103 H 101 H Respiratory Rate 18 18 Blood Pressure 134/85 05/18/18 05:55 05/18/18 06:34 05/18/18 06:55 Temperature Pulse Rate 99 H 88 95 H Respiratory Rate 18 Blood Pressure 05/18/18 07:30 05/18/18 08:15 Temperature Pulse Rate 105 H 94 H Respiratory Rate Blood Pressure 107/60 Intake & Output 05/17/18 05/18/18 05/18/18 18:59 06:59 18:59 Weight 94.801 kg Other: Weight On Admission 94.801 kg Lab and Micro Results: Laboratory Results - last 24 hr 05/18/18 05/18/18 05/18/18 01:00 01:00 01:10 WBC 14.4 H RBC 4.03 Hgb 10.3 L Hct 30.6 L MCV 75.8 L MCH 25.5 L MCHC 33.7 RDW 14.4 Plt Count 300 MPV 7.1 Neut % (Auto) 75.1 H Lymph % (Auto) 17.9 [place] % (Auto) 5.0 Eos % (Auto) 1.7 Baso % (Auto) 0.3 Neut # (Auto) 10.8 H Lymph # (Auto) 2.6 [place] # (Auto) 0.7 Eos # (Auto) 0.2 Baso # (Auto) 0.0 WBC Differential . Differential Comment Auto diff final Uric Acid Total Bilirubin Direct Bilirubin Indirect Bilirubin AST ALT Alkaline Phosphatase Total Protein Albumin Urine Color Colorless Urine Clarity Clear Urine pH 7.0 Ur Specific [place] 1.003 Urine Protein Negative Urine Glucose (UA) Negative Urine Ketones Negative Urine Occult Blood Negative Urine Nitrate Negative Urine Bilirubin Negative Urine Urobilinogen Less than 2 Ur Leukocyte Esterase Negative Urine RBC 1 Micro UA Comment Culture not ind Urine Culture Comments Culture not ind Urine Opiates Screen Neg Ur Barbiturates Screen Neg Ur Amphetamines Screen Neg U Benzodiazepines Scrn Neg Urine Cocaine Screen Neg U Cannabinoids Screen Neg 05/18/18 01:10 WBC RBC Hgb Hct MCV MCH MCHC RDW Plt Count MPV Neut % (Auto) Lymph % (Auto) [place] % (Auto) Eos % (Auto) Baso % (Auto) Neut # (Auto) Lymph # (Auto) [place] # (Auto) Eos # (Auto) Baso # (Auto) WBC Differential Differential Comment Uric Acid 3.0 Total Bilirubin 0.1 L Direct Bilirubin Less than 0.1 Indirect Bilirubin 0.0 AST 9 L ALT 12 Alkaline Phosphatase 86 Total Protein 6.8 Albumin 2.8 L Urine Color Urine Clarity Urine pH Ur Specific [place] Urine Protein Urine Glucose (UA) Urine Ketones Urine Occult Blood Urine Nitrate Urine Bilirubin Urine Urobilinogen Ur Leukocyte Esterase Urine RBC Micro UA Comment Urine Culture Comments Urine Opiates Screen Ur Barbiturates Screen Ur Amphetamines Screen U Benzodiazepines Scrn Urine Cocaine Screen U Cannabinoids Screen Physical Exam: GENERAL: Well-nourished, well-developed patient. CARDIOVASCULAR: Regular rate and rhythm without murmurs, gallops, or rubs. RESPIRATORY: Breath sounds equal bilaterally. No accessory muscle use. ABDOMEN/GI: Abdomen soft, non-tender. Fundus: [-] GENITOURINARY: External Genitalia: intact and normal in appearance Cervix: [-] Dilatation: 0 Effacement: [-] Station: [-] Presentation: vtx Membranes: [-] Uterine Contractions: [-] FHT's: Category: 1 Baseline: [-] Reactive: [-] Variability: [-] Decels: [-] EXTREMITIES: No cyanosis or edema, non-tender, without signs of DVT. Assessment and Plan - Diagnosis (1) 32 weeks gestation of Code(s): Z3A.32 - 32 weeks gestation of Status: Acute (2) Anxiety Code(s): F41.9 - Anxiety disorder, unspecified Status: Acute - Plan no labor, contractions q2 after intercourse, DC home. Saw perinatology today
--- NOTE | 2018-05-18 13:32 | P.DS ---
Date of admission: 05/18/18 01:03 Primary care physician: UNKNOWN Brief History from admission: 32 week with contractions after sex DS: Diagnosis - Discharge Diagnosis (1) 32 weeks gestation of Status: Acute (2) Anxiety Status: Acute DS: Summary Hospital Course: patient came with contractions and cholestasis, DC home stable plan if remains stable at 37 weeks - Time Spent with Patient Total time spent providing and/or coordinating discharge services: Exam Vital signs: Vital Signs 05/18/18 00:30 05/18/18 00:45 05/18/18 00:55 Temperature 98.7 F Pulse Rate 105 H 107 H Respiratory Rate 18 Blood Pressure 05/18/18 01:15 05/18/18 01:40 05/18/18 01:45 Temperature Pulse Rate 104 H 98 H Respiratory Rate 18 Blood Pressure 120/78 05/18/18 02:00 05/18/18 02:30 05/18/18 02:55 Temperature Pulse Rate 99 H 91 H 92 H Respiratory Rate 18 18 Blood Pressure 05/18/18 03:31 05/18/18 03:40 05/18/18 04:00 Temperature 98.0 F Pulse Rate 87 87 Respiratory Rate 18 18 Blood Pressure 124/76 05/18/18 04:50 05/18/18 04:55 05/18/18 05:20 Temperature Pulse Rate 102 H 103 H 101 H Respiratory Rate 18 18 Blood Pressure 134/85 05/18/18 05:55 05/18/18 06:34 05/18/18 06:55 Temperature Pulse Rate 99 H 88 95 H Respiratory Rate 18 Blood Pressure 05/18/18 07:30 05/18/18 08:15 Temperature Pulse Rate 105 H 94 H Respiratory Rate Blood Pressure 107/60 Intake & Output 05/17/18 05/18/18 05/18/18 18:59 06:59 18:59 Weight 94.801 kg Other: Weight On Admission 94.801 kg Results Procedures completed during hospitalization: none Labs on day of discharge: Labs from last 24 hours 05/18/18 05/18/18 05/18/18 01:10 01:10 01:00 WBC 14.4 H RBC 4.03 Hgb 10.3 L Hct 30.6 L MCV 75.8 L MCH 25.5 L MCHC 33.7 RDW 14.4 Plt Count 300 MPV 7.1 Neut % (Auto) 75.1 H Lymph % (Auto) 17.9 Brooke % (Auto) 5.0 Eos % (Auto) 1.7 Baso % (Auto) 0.3 Neut # (Auto) 10.8 H Lymph # (Auto) 2.6 Brooke # (Auto) 0.7 Eos # (Auto) 0.2 Baso # (Auto) 0.0 WBC Differential . Differential Comment Auto diff final Uric Acid 3.0 Total Bilirubin 0.1 L Direct Bilirubin Less than 0.1 Indirect Bilirubin 0.0 AST 9 L ALT 12 Alkaline Phosphatase 86 Total Protein 6.8 Albumin 2.8 L Urine Color Colorless Urine Clarity Clear Urine pH 7.0 Ur Specific [place] 1.003 Urine Protein Negative Urine Glucose (UA) Negative Urine Ketones Negative Urine Occult Blood Negative Urine Nitrate Negative Urine Bilirubin Negative Urine Urobilinogen Less than 2 Ur Leukocyte Esterase Negative Urine RBC 1 Micro UA Comment Culture not ind Urine Culture Comments Culture not ind Urine Opiates Screen Ur Barbiturates Screen Ur Amphetamines Screen U Benzodiazepines Scrn Urine Cocaine Screen U Cannabinoids Screen 05/18/18 01:00 WBC RBC Hgb Hct MCV MCH MCHC RDW Plt Count MPV Neut % (Auto) Lymph % (Auto) Brooke % (Auto) Eos % (Auto) Baso % (Auto) Neut # (Auto) Lymph # (Auto) Brooke # (Auto) Eos # (Auto) Baso # (Auto) WBC Differential Differential Comment Uric Acid Total Bilirubin Direct Bilirubin Indirect Bilirubin AST ALT Alkaline Phosphatase Total Protein Albumin Urine Color Urine Clarity Urine pH Ur Specific [place] Urine Protein Urine Glucose (UA) Urine Ketones Urine Occult Blood Urine Nitrate Urine Bilirubin Urine Urobilinogen Ur Leukocyte Esterase Urine RBC Micro UA Comment Urine Culture Comments Urine Opiates Screen Neg Ur Barbiturates Screen Neg Ur Amphetamines Screen Neg U Benzodiazepines Scrn Neg Urine Cocaine Screen Neg U Cannabinoids Screen Neg Discharge Plan - Discharge Disposition Patient Disposition: Discharge Home - Discharge Condition Condition: Good - Discharge Order Discharge Orders: Discharge Order (Routine); Ordered 05/18/18 Ordered By: Bimal [place] - Physicians Team Primary Care Provider: UNKNOWN, Attending Provider: Jessica Aceves
== END 2018-05-18 13:57 | disposition home or self-care (01) ==
LOC: HOBED 00:04 → H2E 00:04 → OBSVTOIN 01:03 → H2E 04:00
PROVIDERS: ADMIT Obstetrics & Gynecology Obstetrics; ATTEND Obstetrics & Gynecology Obstetrics

== ENCOUNTER 2018-06-15 17:34 | Inpatient (IN) ==
[2018-06-15] MEDS ORDERED: Sodium Chlor 0.9% Inj 500 ML IV.SIG PRN (18:40)
[2018-06-15] MEDS ORDERED: Oxytocin 30 Units/500ml Premix 30 UNITS/500 ML BAG IV.SIG ONE (18:40)
[2018-06-15] MEDS ORDERED: Sod Chloride 0.9% Inj 1,000 ML IV.CONT PRN (18:40)
[2018-06-15] MEDS ORDERED: fentaNYL Citrate Inj 100 MCG/2 ML Ampul IV.PUSH PRN ×2 (18:40)
[2018-06-15] MEDS ORDERED: Naloxone Inj 0.4 MG/ML Vial IV.PUSH PRN (18:40)
[2018-06-15] MEDS ORDERED: Citric Acid/Sodium Citrate Liq 30 ML UDC PO SCH (18:45)
--- NOTE | 2018-06-15 18:54 | P.HPOB ---
History of Present Illness Primary Care Physician: NOT REQUIRED History of Present Illness: 27 yo with caro . she has severe anxiety and cholestasis of . she is being induced with cytotec and pitocin. She worries about preeclampsia and hypertension. She is on meds and has been counselled Para: 1 : 2 - Inpatient Certification I certify that the inpatient services were ordered in accordance with Medicare regulations governing the order. This includes certification that hospital inpatient services are reasonable and necessary and in the case of services not specified as inpatient-only under 42 CFR 419.22(n), that they are appropriately provided as inpatient services in accordance to with the 2-midnight benchmark under 43 CFR 412.3(e) Estimated Total Length of Stay (Days): 2 Plans for Post Hospital Care: Home Review of Systems All other systems reviewed negative except as stated in HPI [facility] - History History Provided By: Patient - Medical History Medical History: Medical History (Last Reviewed 06/06/18 @ 02:04 by Gilberto Denis MD) Anxiety (Acute) Cholestasis during in third trimester (Acute) History of pre-eclampsia in prior , currently in third trimester History of pre-eclampsia in prior , currently in third trimester - Surgical History Surgical History: Surgical History (Last Reviewed 06/06/18 @ 02:04 by Gilberto Denis MD) No history of previous surgery (Acute) - Tobacco History Second Hand Smoke Exposure: No Smoking Status: Never smoker - Alcohol History How Often Do You Have a Drink Containing Alcohol: Never - Substance Use History Substance History: No History of Abuse - Travel History History of Recent Travel: No Medications and Allergies Active Medications: Active Medications Citric Acid/Sodium Citrate (Sodium Citrate/Citric Acid Liq) 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 [facility] Stop: 06/19/18 18:44 Fentanyl Citrate (Fentanyl Inj) 50 mcg IV.PUSH Q1H PRN PRN Reason: Pain Scale 3 - 5 Fentanyl Citrate (Fentanyl Inj) 100 mcg IV.PUSH Q1H PRN PRN Reason: PAIN SCALE 6 TO 10 Lactated Ringer's (Lr 1000 Ml Inj) 1,000 mls @ 125 mls/hr IV.CONT .Q8H [facility] Lactated Ringer's (Lr 1000 Ml Inj) 1,000 mls @ 3,000 mls/hr IV.SIG UNSCH PRN PRN Reason: compromise or epidural Sodium Chloride (Ns Inj) 500 mls @ 1,000 mls/hr IV.SIG UNSCH PRN PRN Reason: SEE LABEL COMMENTS Sodium Chloride (Ns Inj) 1,000 mls @ 100 mls/hr IV.CONT .Q10H PRN PRN Reason: SEE LABEL COMMENTS Oxytocin (Pitocin 30 Units/Ns 500 Ml Premix) 30 units in 500 mls @ 999 mls/hr IV.SIG BOLUS ONE Stop: 06/15/18 19:10 Lidocaine HCl (Xylocaine 1% Inj) 0.1 ml I-DERMAL PRN PRN PRN Reason: For IV start Stop: 06/18/18 18:39 Lidocaine HCl (Xylocaine 1% Inj) 10 ml INFILTRATN PRN PRN PRN Reason: For episiotomy repair Stop: 06/17/18 18:39 Lorazepam (Ativan) 2 mg PO Q6H [facility] Metoprolol Tartrate (Lopressor) 50 mg PO DAILY@0800,1700 MICHAEL Mineral Oil (Muri-Lube Oil) 10 ml TOPICAL PRN PRN PRN Reason: PRN perineal massage Misoprostol (Cytotec) 25 mcg VAGINAL ONCE ONE Stop: 06/15/18 18:43 Naloxone HCl (Narcan Inj) 0.1 mg IV.PUSH Q2M PRN PRN Reason: for opiate reversal Non-Formulary Medication (Keflex) 250 mg PO Q6HR [facility]EL Sodium Chloride (Ns Flush) 2 ml IV.FLUSH BID MICHAEL Sodium Chloride (Ns Flush) 2 ml IV.FLUSH PRN PRN PRN Reason: FLUSH AFTER USING IV ACCESS Allergies Allergy/AdvReac Type Severity Reaction Status Date / Time clarithromycin Allergy Severe Eye Verified 06/15/18 18:01 dilation latex Allergy Severe rash Verified 06/15/18 18:01 ciprofloxacin Allergy Intermediate vomiting/ji Verified 06/15/18 18:01 ttery diatrizoate meglumine Allergy Unknown Doesn't Verified 06/13/18 21:21 recall reaction doxycycline Allergy Unknown unknown Verified 06/15/18 18:01 gadobenic acid Allergy Unknown Doesn't Verified 06/13/18 21:21 recall reaction gadodiamide Allergy Unknown Doesn't Verified 06/13/18 21:21 recall reaction gadoteridol Allergy Unknown Doesn't Verified 06/13/18 21:21 recall reaction iodixanol Allergy Unknown Doesn't Verified 06/13/18 21:21 recall reaction iohexol Allergy Unknown Doesn't Verified 06/13/18 21:21 recall reaction labetalol Allergy Unknown unknown Verified 06/15/18 18:01 penicillin G AdvReac Severe Hives Verified 06/15/18 18:01 sertraline AdvReac Severe Deep Verified 06/15/18 18:01 depression. Home Medications Medication Instructions Recorded Confirmed Type aspirin 81 mg PO DAILY 04/27/18 06/13/18 History Keflex 250 Q6HR 06/15/18 History Exam Vital signs: Vital Signs 06/15/18 18:20 Pulse Rate 105 H Respiratory Rate 17 Blood Pressure 136/83 Intake & Output 06/14/18 06/15/18 06/15/18 18:59 06:59 18:59 Weight 220 kg - Constitutional no acute distress Comments: anxiety on 8 mg ativan per day - Routine HEENT Exam Head: Present: normocephalic ENT: Present: mucous membranes moist - Routine Respiratory Exam Present: CTA bilaterally - Routine Cardiovascular Exam Present: RRR - Routine Abdominal Exam Present: soft, normoactive bowel sounds - Routine Extremities Exam Present: full ROM - Routine Skin Exam Present: intact Comments: cervix closed but soft Results - Labs Group B Strep: Negative Caprini VTE Risk Assessment Caprini VTE Risk Assessment: No/Low Risk (score <= 1) Caprini Risk Assessment Model: Point Value = 1 Point Value = 2 Point Value = 3 Point Value = 5 Age 41-60 Minor surgery BMI > 25 kg/m2 Swollen legs Varicose veins or History of unexplained or recurrent spontaneous Oral contraceptives or hormone replacement Sepsis (< 1 month) Serious lung disease, including pneumonia (< 1 month) Abnormal pulmonary function Acute myocardial infarction Congestive heart failure (< 1 month) History of inflammatory bowel disease Medical patient at bed rest Age 61-74 Arthroscopic surgery Major open surgery (> 45 min) Laparoscopic surgery (> 45 min) Malignancy Confined to bed (> 72 hours) Immobilizing plaster cast Central venous access Age >= 75 History of VTE Family history of VTE Factor V Leiden Prothrombin [id number] Lupus anticoagulant Anticardiolipin antibodies Elevated serum homocysteine Heparin-induced thrombocytopenia Other congenital or acquired thrombophilia Stroke (< 1 month) Elective arthroplasty Hip, pelvis, or leg fracture Acute spinal cord injury (< 1 month) Prophylaxis Regimen: Total Risk Factor Score Risk Level Prophylaxis Regimen 0-1 Low Early ambulation 2 Moderate Order ONE of the following: *Sequential Compression Device (SCD) *Heparin 5000 units SQ BID 3-4 Higher Order ONE of the following medications: *Heparin 5000 units SQ TID *Enoxaparin/Lovenox 40 mg SQ daily (WT < 150 kg, CrCl > 30 mL/min) *Enoxaparin/Lovenox 30 mg SQ daily (WT < 150 kg, CrCl > 10-29 mL/min) *Enoxaparin/Lovenox 30 mg SQ BID (WT < 150 kg, CrCl > 30 mL/min) AND/OR *Sequential Compression Device (SCD) 5 or more Highest Order ONE of the following medications: *Heparin 5000 units SQ TID (Preferred with Epidurals) *Enoxaparin/Lovenox 40 mg SQ daily (WT < 150 kg, CrCl > 30 mL/min) *Enoxaparin/Lovenox 30 mg SQ daily (WT < 150 kg, CrCl > 10-29 mL/min) *Enoxaparin/Lovenox 30 mg SQ BID (WT < 150 kg, CrCl > 30 mL/min) AND *Sequential Compression Device (SCD) Assessment and Plan - Diagnosis (1) Chronic hypertension during , antepartum Code(s): O10.919 - Unspecified pre-existing hypertension complicating , unspecified trimester Status: Chronic (2) 36 weeks gestation of Code(s): Z3A.36 - 36 weeks gestation of Status: Acute - Plan cytotec then pitocin
[2018-06-15 19:08] LABS: Baso % (Auto) 0.2 % (0.0-2.0); Eos # (Auto) 0.1 th/mm3 (0.0-0.4); Hematocrit 30.9 % (35.0-46.0); Hemoglobin 10.3 gm/dL (11.6-15.3); Lymph # (Auto) 2.1 th/mm3 (1.0-4.8); Lymph % (Auto) 14.1 % (9.0-44.0); Mean Corpuscular HGB Conc 33.5 % (32.0-36.0); Mean Corpuscular Hemoglobin 25.3 pg (27.0-34.0); Mean Corpuscular Volume 75.4 fL (80.0-100.0); Mean Platelet Volume 7.4 fL (7.0-11.0); Mono # (Auto) 0.6 th/mm3 (0.0-0.9); Mono % (Auto) 4.1 % (0.0-8.0); Neut # (Auto) 12.1 th/mm3 (1.8-7.7); Neut % (Auto) 80.6 % (16.0-70.0); Platelet Count 303 th/mm3 (150-450); Red Blood Count 4.09 mil/mm3 (4.00-5.30); Red Cell Distribution Width 15.2 % (11.6-17.2)
[2018-06-15 19:28] LABS: Bacteria,Urine Occasional /hpf; Bilirubin,Urine Negative (Negative); Calcium Oxalate Crystals,Urine Moderate /hpf; Clarity,Urine Cloudy (Clear); Color,Urine Yellow (Yellw/Straw); Glucose,Urine (UA) Negative (Negative); Leukocyte Esterase,Urine Small (Negative); Mucus,Urine Few /lpf (Occasional); Nitrite,Urine Negative (Negative); Specific Gravity,Urine 1.018 (1.002-1.035); Squamous Epithelial Cell,Urine 4 /hpf (0-5)
[2018-06-15 19:31] LABS: Amphetamine Urine With Conf Neg (Neg); Benzodiazepine Urine With Conf Neg (Neg)
[2018-06-15] MEDS: LORazepam 1 MG Tablet PO SCH (21:55)
[2018-06-15] MEDS ORDERED: fentaNYL 2MCG-Bupiv 0.125% Epi 150 ML EPIDURAL ONE (23:08)
[2018-06-15] MEDS ORDERED: Lidocaine 1%/Epinephrine 1:200,000 PF Inj 30 ML Vial ONE (23:35)
[2018-06-15] MEDS ORDERED: Lidocaaine 1.5%/Epinephrine 1:200,000 PF Inj 5 ML Amp ONE (23:36)
[2018-06-16] MEDS ORDERED: KEFLEX 250 MG PO SCH
[2018-06-16] MEDS ORDERED: fentaNYL Citrate Inj 100 MCG/2 ML Ampul EPIDURAL ONE (00:17)
[2018-06-16] MEDS ORDERED: Oxytocin 30 Units/500ml Premix 30 UNITS/500 ML BAG IV.SIG PRN (00:29)
[2018-06-16] MEDS: LORazepam 1 MG Tablet PO SCH ×4 (01:03→19:19)
[2018-06-16] MEDS: fentaNYL 2MCG-Bupiv 0.125% Epi 150 ML EPIDURAL PRN ×2 (01:03→11:36)
[2018-06-16] MEDS: Metoprolol Tartrate 50 MG Tablet PO SCH ×2 (07:57→17:25)
--- NOTE | 2018-06-16 09:13 | P.OBLABOR ---
Subjective Interval history: doing well contractions and no problems except anxiety Objective Vital Signs: Vital Signs - 8 hr 06/16/18 01:30 06/16/18 01:35 06/16/18 01:45 Temperature Pulse Rate 87 95 H 95 H Respiratory Rate 18 Blood Pressure 134/78 118/73 06/16/18 01:55 06/16/18 01:59 06/16/18 02:00 Temperature 98.8 F Pulse Rate 99 H 95 H Respiratory Rate 18 Blood Pressure 109/70 06/16/18 02:10 06/16/18 02:20 06/16/18 02:30 Temperature Pulse Rate 91 H 105 H 100 H Respiratory Rate Blood Pressure 115/70 125/73 06/16/18 02:55 06/16/18 03:10 06/16/18 03:15 Temperature Pulse Rate 88 88 86 Respiratory Rate Blood Pressure 125/78 130/75 137/83 06/16/18 03:30 06/16/18 03:35 06/16/18 03:55 Temperature Pulse Rate 92 H 98 H 90 Respiratory Rate Blood Pressure 124/72 124/73 06/16/18 04:00 06/16/18 04:05 06/16/18 04:16 Temperature 98.2 F Pulse Rate 86 93 H 93 H Respiratory Rate 18 Blood Pressure 117/69 06/16/18 04:20 06/16/18 04:25 06/16/18 04:50 Temperature Pulse Rate 90 99 H 88 Respiratory Rate Blood Pressure 112/57 L 108/62 06/16/18 04:55 06/16/18 05:10 06/16/18 05:15 Temperature Pulse Rate 97 H 94 H 93 H Respiratory Rate Blood Pressure 119/64 126/79 06/16/18 05:30 06/16/18 05:35 06/16/18 05:40 Temperature Pulse Rate 86 85 86 Respiratory Rate Blood Pressure 117/82 06/16/18 05:55 06/16/18 06:00 06/16/18 06:10 Temperature Pulse Rate 95 H 96 H 90 Respiratory Rate Blood Pressure 129/83 128/85 06/16/18 06:40 06/16/18 06:45 06/16/18 06:50 Temperature Pulse Rate 88 105 H 86 Respiratory Rate Blood Pressure 129/84 112/57 L 06/16/18 07:10 06/16/18 07:15 06/16/18 07:25 Temperature Pulse Rate 82 107 H Respiratory Rate 20 Blood Pressure 104/58 L 114/69 06/16/18 07:40 06/16/18 07:52 06/16/18 08:00 Temperature 97.9 F Pulse Rate 101 H 101 H Respiratory Rate 20 Blood Pressure 115/65 112/73 06/16/18 08:25 06/16/18 08:59 06/16/18 09:10 Temperature Pulse Rate 106 H 106 H 100 H Respiratory Rate 20 20 Blood Pressure 133/87 134/82 128/86 Objective: Pelvic Exam: Cervix: [-] Dilatation: [-] Effacement: [-] Station: [-] Presentation: [-] Membranes: [intact or ruptured] Uterine Contractions: [-] FHT's: Category: [-] Baseline: [-] Reactive: [-] Variability: [-] Decels: [-] Patient Started Active Labor: Yes Medical Induction of Labor: Yes Artificial Rupture of Membrane: Yes Artificial ROM Date: 06/16/18 Artificial ROM Time: 09:13 Assessment and Plan - Diagnosis (1) Chronic hypertension during , antepartum Code(s): O10.919 - Unspecified pre-existing hypertension complicating , unspecified trimester Status: Chronic (2) 36 weeks gestation of Code(s): Z3A.36 - 36 weeks gestation of Status: Acute - Plan cytotec then pitocin
--- NOTE | 2018-06-16 12:10 | P.OBDELI ---
Weeks Gestation: 36 Patient Started Active Labor: Yes Medical Induction of Labor: Yes Artificial Rupture of Membrane: Yes Artificial ROM Date: 06/16/18 Artificial ROM Time: 08:30 Anesthesia: Epidural Episiotomy: none Vaginal Delivery: Normal, Spontaneous Presentation: Occiput posterior Nuchal Cord: x1 Delayed Cord Clamping (45 sec): Yes Placenta: Spontaneous delivery, Intact, 3 vessel cord Laceration: Perineal, 1 deg Repair: Chromic running Estimated blood loss (mL): 30 Infant: Male
[2018-06-16] MEDS ORDERED: Acetaminophen 325 MG Tablet PO PRN (12:11)
[2018-06-16] MEDS ORDERED: Bisacodyl 10 MG Supp RECTAL PRN (12:11)
[2018-06-16] MEDS ORDERED: Naloxone Inj 0.4 MG/ML Vial IV.PUSH PRN (12:11)
[2018-06-16] MEDS ORDERED: Witch Hazel 50%/Glyderin 12.5% 40 Pad Jar RECTAL PRN (12:11)
[2018-06-16] MEDS ORDERED: Benzocaine 20% Top Spray 60 ML Can TOPICAL PRN (12:11)
[2018-06-16] MEDS ORDERED: Oxytocin 30 Units/500ml Premix 30 UNITS/500 ML BAG IV.CONT PRN (12:11)
[2018-06-16] MEDS ORDERED: Zolpidem Tartrate 5 MG Tablet PO PRN (12:11)
[2018-06-16] MEDS ORDERED: Diphtheria/Tetanus/Pertussis Vaccine Inj 0.5 ML Syringe IM ONE (16:00)
[2018-06-16] MEDS ORDERED: Measles/Mumps/Rubella Vaccine Inj 0.5 ML Vial SQ ONE (16:00)
[2018-06-17] MEDS: LORazepam 1 MG Tablet PO SCH ×4 (01:03→19:04)
[2018-06-17] MEDS: Senna/Docusate Sodium 8.6/50 MG Tablet PO SCH ×3 (01:07→21:30)
[2018-06-17 06:16] LABS: Albumin 2.2 g/dL (3.4-5.0); Anion Gap 10 meq/L (5-15); Aspartate Aminotransferase 18 U/L (15-37); Blood Urea Nitrogen 6 mg/dL (7-18); Calcium 8.8 mg/dL (8.5-10.1); Carbon Dioxide 26.1 meq/L (21.0-32.0); Chloride 107 meq/L (98-107); Glomerular Filtration Rate Greater Than 89 mL/min (>89); Glucose,Random 98 mg/dL (74-106); Potassium 3.6 meq/L (3.5-5.1); Sodium 143 meq/L (136-145)
[2018-06-17 06:22] LABS: Alanine Aminotransferase 13 U/L (10-53); Alkaline Phosphatase 80 U/L (45-117); Total Protein 5.6 g/dL (6.4-8.2)
[2018-06-17] MEDS: Ibuprofen 400 MG Tablet PO PRN ×2 (06:40→15:20)
--- NOTE | 2018-06-17 08:46 | P.PNOB ---
Subjective Post day: 1 Interval history: 27 yo post doing well. But patient has anxiety. she worries of preeclampsia but has no signs Objective Vital Signs/I&O: Vital Signs 06/16/18 08:59 06/16/18 09:10 06/16/18 09:25 Temperature Pulse Rate 106 H 95 H 96 H Respiratory Rate 20 20 Blood Pressure 134/82 128/86 127/91 H 06/16/18 09:51 06/16/18 09:55 06/16/18 10:21 Temperature Pulse Rate 100 H 97 H 100 H Respiratory Rate 20 20 Blood Pressure 134/96 H 138/94 H 06/16/18 10:25 06/16/18 10:50 06/16/18 10:55 Temperature Pulse Rate 104 H 106 H 127 H Respiratory Rate Blood Pressure 129/80 06/16/18 11:20 06/16/18 11:46 06/16/18 11:57 Temperature Pulse Rate 115 H 113 H 132 H Respiratory Rate 20 20 Blood Pressure 140/92 H 140/107 H 06/16/18 12:01 06/16/18 12:05 06/16/18 15:25 Temperature 98.4 F 97.9 F Pulse Rate 120 H 95 H Respiratory Rate 16 Blood Pressure 137/84 138/89 06/16/18 19:26 06/16/18 19:37 06/16/18 20:30 Temperature 98.1 F Pulse Rate 99 H 98 H Respiratory Rate 16 Blood Pressure 117/76 153/97 H 155/96 H 06/16/18 20:31 06/17/18 00:00 06/17/18 03:45 Temperature 98.2 F 97.8 F Pulse Rate 91 H 101 H Respiratory Rate 18 18 20 Blood Pressure 119/78 136/91 H 06/17/18 08:00 Temperature 98.1 F Pulse Rate 94 H Respiratory Rate 18 Blood Pressure 126/83 Intake & Output 06/16/18 06/17/18 06/17/18 18:59 06:59 18:59 Intake Total 1000 / 1000 Balance 1000 / 1000 Weight 100 kg Intake: IV 1000 / 1000 LR 1000 mL Inj 1,000 ML @ 125 1000 / 1000 mls/hr IV.CONT .Q8H [facility] Rx#: [id number] Result Diagrams: 06/15/18 18:19 06/17/18 05:30 Objective Remarks: GENERAL: Well-nourished, well-developed patient. CARDIOVASCULAR: Regular rate and rhythm without murmurs, gallops, or rubs. RESPIRATORY: Breath sounds equal bilaterally. No accessory muscle use. ABDOMEN/GI: Abdomen soft, non-tender. Fundus: Firm, non-tender at umbilicus. GENITOURINARY: Light to moderate bleeding. EXTREMITIES: No cyanosis or edema, non-tender, without signs of DVT. 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 [facility] Stop: 06/19/18 18:44 Fentanyl Citrate (Fentanyl Inj) 50 mcg IV.PUSH Q1H PRN PRN Reason: Pain Scale 3 - 5 Fentanyl Citrate (Fentanyl Inj) 100 mcg IV.PUSH Q1H PRN PRN Reason: PAIN SCALE 6 TO 10 Lactated Ringer's (Lr 1000 Ml Inj) 1,000 mls @ 125 mls/hr IV.CONT .Q8H [facility] Last Admin: 06/16/18 14:41 Dose: Not Given Lactated Ringer's (Lr 1000 Ml Inj) 1,000 mls @ 3,000 mls/hr IV.SIG UNSCH PRN PRN Reason: compromise or epidural Last Admin: 06/16/18 01:03 Dose: 3,000 mls/hr Sodium Chloride (Ns Inj) 500 mls @ 1,000 mls/hr IV.SIG UNSCH PRN PRN Reason: SEE LABEL COMMENTS Sodium Chloride (Ns Inj) 1,000 mls @ 100 mls/hr IV.CONT .Q10H PRN PRN Reason: SEE LABEL COMMENTS Fentanyl/Bupivacaine/Sodium Chlor (Fentanyl 2 Mcg-Bupiv 0.125% Epi) 150 mls @ 10 mls/hr EPIDURAL PRN PRN PRN Reason: for Labor Pain Last Admin: 06/16/18 11:36 Dose: 10 mls/hr Oxytocin (Pitocin 30 Units/Ns 500 Ml Premix) 30 units in 500 mls @ 1 mls/hr IV.SIG TITRATE PRN; Protocol PRN Reason: For induction of labor Last Admin: 06/16/18 01:04 Dose: 1 milliunit/min, 1 mls/hr Oxytocin (Pitocin 30 Units/Ns 500 Ml Premix) 30 units in 500 mls @ 100 mls/hr IV.CONT UNSCH PRN PRN Reason: Heavy bleeding Ibuprofen (Motrin) 800 mg PO Q8H PRN PRN Reason: For Cramping Last Admin: 06/17/18 06:40 Dose: 800 mg Lactulose (Lactulose Liq) 30 ml PO DAILY PRN PRN Reason: SEVERE CONSITIPATION Lidocaine HCl (Xylocaine 1% Inj) 0.1 ml I-DERMAL PRN PRN PRN Reason: For IV start Stop: 06/18/18 18:39 Lidocaine HCl (Xylocaine 1% Inj) 10 ml INFILTRATN PRN PRN PRN Reason: For episiotomy repair Stop: 06/17/18 18:39 Lorazepam (Ativan) 2 mg PO Q6H [facility] Last Admin: 06/17/18 06:41 Dose: 2 mg Metoprolol Tartrate (Lopressor) 50 mg PO DAILY@0800,1700 [facility] Last Admin: 06/16/18 17:25 Dose: 50 mg Mineral Oil (Muri-Lube Oil) 10 ml TOPICAL PRN PRN PRN Reason: PRN perineal massage Naloxone HCl (Narcan Inj) 0.1 mg IV.PUSH Q2M PRN PRN Reason: for opiate reversal Naloxone HCl (Narcan Inj) 0.1 mg IV.PUSH Q2M PRN PRN Reason: for opiate reversal Ondansetron HCl (Zofran Odt) 4 mg PO Q6H PRN PRN Reason: NAUSEA OR VOMITING Oxycodone/Acetaminophen (Percocet 5/325 Mg) 2 tab PO Q4H PRN PRN Reason: PAIN SCALE 6 TO 10 Oxycodone/Acetaminophen (Percocet 5/325 Mg) 1 tab PO Q4H PRN PRN Reason: PAIN SCALE 3 TO 5 Last Admin: 06/17/18 01:04 Dose: 1 tab Senna/Docusate Sodium (Nicolasa-Colace) 1 tab PO BID [facility] Last Admin: 06/17/18 01:07 Dose: Not Given Sennosides (Senokot) 17.2 mg PO Q12H PRN PRN Reason: Moderate Constipation Sodium Chloride (Ns Flush) 2 ml IV.FLUSH BID [facility] Last Admin: 06/17/18 04:39 Dose: Not Given Sodium Chloride (Ns Flush) 2 ml IV.FLUSH PRN PRN PRN Reason: FLUSH AFTER USING IV ACCESS Sodium Chloride (Ns Flush) 2 ml IV.FLUSH BID [facility] Last Admin: 06/17/18 01:05 Dose: 2 ml Sodium Chloride (Ns Flush) 2 ml IV.FLUSH PRN PRN PRN Reason: FLUSH AFTER USING IV ACCESS Witch Aarti/Glycerin (Tucks Pads) 1 applicatio RECTAL QID PRN PRN Reason: HEMORRHOIDS Zolpidem Tartrate (Ambien) 5 mg PO HS PRN PRN Reason: SLEEP Assessment and Plan - Diagnosis (1) Chronic hypertension during , antepartum Code(s): O10.919 - Unspecified pre-existing hypertension complicating , unspecified trimester Status: Chronic (2) 36 weeks gestation of Code(s): Z3A.36 - 36 weeks gestation of Status: Acute - Plan and doing well no sign of preeclampsia
[2018-06-17] MEDS: Metoprolol Tartrate 50 MG Tablet PO SCH ×2 (08:47→16:57)
[2018-06-17] MEDS ORDERED: Azithromycin 250 MG Tablet PO SCH (09:00)
[2018-06-17] MEDS ORDERED: Azithromycin 250 MG Tablet PO ONE (12:30)
[2018-06-18] MEDS: Ibuprofen 400 MG Tablet PO PRN ×2 (00:34→11:47)
[2018-06-18] MEDS: LORazepam 1 MG Tablet PO SCH ×4 (00:34→18:54)
[2018-06-18 06:31] LABS: Hemoglobin 9.8 gm/dL (11.6-15.3); Mean Corpuscular HGB Conc 32.5 % (32.0-36.0); Mean Corpuscular Hemoglobin 24.9 pg (27.0-34.0); Mean Corpuscular Volume 76.7 fL (80.0-100.0); Mean Platelet Volume 7.1 fL (7.0-11.0); Platelet Count 239 th/mm3 (150-450); Red Blood Count 3.92 mil/mm3 (4.00-5.30); Red Cell Distribution Width 15.8 % (11.6-17.2)
[2018-06-18 06:47] LABS: Alanine Aminotransferase 13 U/L (10-53); Albumin 2.3 g/dL (3.4-5.0); Anion Gap 13 meq/L (5-15); Aspartate Aminotransferase 19 U/L (15-37); Calcium 8.2 mg/dL (8.5-10.1); Carbon Dioxide 24.5 meq/L (21.0-32.0); Chloride 107 meq/L (98-107); Glomerular Filtration Rate Greater Than 89 mL/min (>89); Glucose,Random 80 mg/dL (74-106); Potassium 3.7 meq/L (3.5-5.1); Sodium 144 meq/L (136-145)
[2018-06-18 06:56] LABS: Alkaline Phosphatase 73 U/L (45-117); Blood Urea Nitrogen 11 mg/dL (7-18); Total Protein 5.7 g/dL (6.4-8.2)
[2018-06-18] MEDS: Metoprolol Tartrate 50 MG Tablet PO SCH ×2 (08:22→17:13)
[2018-06-18] MEDS ORDERED: Azithromycin 250 MG Tablet PO SCH (09:00)
[2018-06-18] MEDS: Senna/Docusate Sodium 8.6/50 MG Tablet PO SCH (12:43)
[2018-06-18 18:50] VITALS: BP 146/94; PULSE 80; RESP 20
[2018-06-18 18:51] VITALS: TEMP 98.8
[2018-06-18] MEDS ORDERED: Ketorolac Inj 30 MG/ML (IVP) Vial IM PRN (19:19)
--- NOTE | 2018-06-18 19:52 | CT ---
EXAM DATE: 06/18/2018 7:35 PM EDT AGE/SEX: 27 years / Female INDICATIONS: Abdomen pain two weeks post . CLINICAL DATA: This is the patient's initial encounter. Patient reports that signs and symptoms have been present for 1 day and indicates a pain score of 5/10. MEDICAL/SURGICAL HISTORY: Cholelithasis. None. RADIATION DOSE: 11.89 CTDI (mGy) COMPARISON: [facility], CT ABDOMEN & PELVIS W/O CONTRAST, 01/22/2015. . TECHNIQUE: Multiple contiguous axial images were obtained through the abdomen. Images were obtained using multiple row detector helical technique. Using automated exposure control and adjustment of the mA and/or kV according to patient size, radiation dose was kept as low as reasonably achievable to o btain optimal diagnostic quality images. DICOM format image data is available electronically for rev iew and comparison. FINDINGS: Abdomen CT: The spleen, pancreas, right kidney, adrenals are unremarkable. There is no evidence for any appreciab le pathological adenopathy, free fluid, or bowel obstruction. Approximate 4 to 5 mm nonobstructing stone left kidney. The left hepatic lobe is enlarged measures 17 .7 cm in craniocaudal dimension not significantly changed. It appeared fatty on the prior examination , however on today's study is not fatty. Pelvic CT: There is no evidence for mass, abscess formation, or any significant adenopathy within the pelvis. T he uterus is enlarged measures 10.8 cm in AP diameter consistent with a uterus. CONCLUSION: Enlargement of left hepatic lobe not significantly changed since the prior exam and postp artum uterus. Small nonobstructing stone left kidney. Electronically signed by: Cas Thompson MD 06/18/2018 7:50 PM EDT
== END 2018-06-18 22:44 | disposition home or self-care (01) ==
LOC: H2E 17:34 → H1EA 06-16 14:21
PROVIDERS: ADMIT Obstetrics & Gynecology; ATTEND Obstetrics & Gynecology

== ENCOUNTER 2018-06-21 12:02 | Inpatient (IN) ==
[2018-06-21] MEDS ORDERED: NIFEdipine 10 MG Capsule PO ONE (12:53)
[2018-06-21 13:42] LABS: Baso % (Auto) 0.3 % (0.0-2.0); Eos # (Auto) 0.3 th/mm3 (0.0-0.4); Eos % (Auto) 3.1 % (0.0-4.0); Hematocrit 31.9 % (35.0-46.0); Hemoglobin 10.3 gm/dL (11.6-15.3); Lymph # (Auto) 1.8 th/mm3 (1.0-4.8); Lymph % (Auto) 21.1 % (9.0-44.0); Mean Corpuscular HGB Conc 32.5 % (32.0-36.0); Mean Corpuscular Hemoglobin 24.8 pg (27.0-34.0); Mean Corpuscular Volume 76.4 fL (80.0-100.0); Mono # (Auto) 0.4 th/mm3 (0.0-0.9); Neut # (Auto) 6.1 th/mm3 (1.8-7.7); Neut % (Auto) 70.5 % (16.0-70.0); Platelet Count 278 th/mm3 (150-450); Red Blood Count 4.17 mil/mm3 (4.00-5.30); Red Cell Distribution Width 15.7 % (11.6-17.2); White Blood Count 8.7 th/mm3 (4.0-11.0)
[2018-06-21 14:03] LABS: Alanine Aminotransferase 49 U/L (10-53); Albumin 2.8 g/dL (3.4-5.0); Alkaline Phosphatase 83 U/L (45-117); Anion Gap 11 meq/L (5-15); Aspartate Aminotransferase 87 U/L (15-37); Blood Urea Nitrogen 13 mg/dL (7-18); Calcium 8.4 mg/dL (8.5-10.1); Chloride 107 meq/L (98-107); Glomerular Filtration Rate Greater Than 89 mL/min (>89); Glucose,Random 79 mg/dL (74-106); Potassium 3.7 meq/L (3.5-5.1); Sodium 144 meq/L (136-145); Total Protein 6.5 g/dL (6.4-8.2)
[2018-06-21] MEDS ORDERED: Mag Sulf/Water 4 gm/100 ml 100 ML IV.SIG ONE (14:22)
--- NOTE | 2018-06-21 14:34 | ED ---
History of Present Illness Primary Care Physician: No Primary Care Physician Chief Complaint: my blood pressure is high History of Present Illness: Patient is PPD#4 s/p . She has a hisotry of CHTN that has been controlled with metoprolol throughout her on 50mg BID. She underwent IOL for cholestasis. During her stay her BP was stable, but since her discharge she ntoes increasing levels with some in the severe range. Sje also notes a new onset headache that was partially relieved with ibuprofen and some spots in ehr vision over the past week. PMFSH - History History Provided By: Patient - Medical History Medical History: Medical History (Last Updated 06/20/18 @ 06:12 by Usama Lee MD) Anxiety (Acute) Cholestasis during in third trimester (Acute) Chronic hypertension History of pre-eclampsia in prior , currently in third trimester - Surgical History Surgical History: Surgical History (Last Reviewed 06/06/18 @ 02:04 by Gilberto Denis MD) No history of previous surgery (Acute) - Tobacco History Second Hand Smoke Exposure: No Smoking Status: Never smoker - Alcohol History How Often Do You Have a Drink Containing Alcohol: Never - Substance Use History Substance History: No History of Abuse - Travel History History of Recent Travel: No Medications and Allergies Active Medications: Active Medications Calcium Gluconate (Calcium Gluconate Inj) 1 gm IV.PUSH PRN PRN PRN Reason: Magnesium toxicity Lactated Ringer's (Lr 1000 Ml Inj) 1,000 mls @ 75 mls/hr IV.CONT .[id number] MICHAEL Magnesium Sulfate (Magnesium Sulfate/Water 4 Gm/100 Ml Premix) 100 mls @ 300 mls/hr IV.SIG ONCE ONE Stop: 06/21/18 14:41 Magnesium Sulfate (Magnesium Sulfate/Water 40 Gm/1000 Ml Premix) 40 gm in 1, 000 mls @ 50 mls/hr IV.CONT Q24H MICHAEL Nifedipine (Procardia Xl) 30 mg PO DAILY MICHAEL Sodium Chloride (Ns Flush) 2 ml IV.FLUSH PRN PRN PRN Reason: FLUSH AFTER USING IV ACCESS Sodium Chloride (Ns Flush) 2 ml IV.FLUSH BID MICHAEL Allergies Allergy/AdvReac Type Severity Reaction Status Date / Time clarithromycin Allergy Severe Eye Verified 06/21/18 12:25 dilation latex Allergy Severe rash Verified 06/21/18 12:25 ciprofloxacin Allergy Intermediate vomiting/ji Verified 06/21/18 12:25 ttery diatrizoate meglumine Allergy Unknown Doesn't Verified 06/21/18 12:25 recall reaction doxycycline Allergy Unknown unknown Verified 06/21/18 12:25 gadobenic acid Allergy Unknown Doesn't Verified 06/21/18 12:25 recall reaction gadodiamide Allergy Unknown Doesn't Verified 06/21/18 12:25 recall reaction gadoteridol Allergy Unknown Doesn't Verified 06/21/18 12:25 recall reaction iodixanol Allergy Unknown Doesn't Verified 06/21/18 12:25 recall reaction iohexol Allergy Unknown Doesn't Verified 06/21/18 12:25 recall reaction labetalol Allergy Unknown unknown Verified 06/19/18 00:40 penicillin G AdvReac Severe Hives Verified 06/19/18 00:40 sertraline AdvReac Severe Deep Verified 06/19/18 00:40 depression. Home Medications Medication Instructions Recorded Confirmed Type aspirin 81 mg PO DAILY 04/27/18 06/21/18 History PNV cmb#95-ferrous fumarate-FA 1 tab PO DAILY 06/16/18 06/21/18 History [] Exam Vital signs: Vital Signs 06/21/18 12:16 06/21/18 12:17 06/21/18 12:28 Temperature 99.2 F Pulse Rate 90 95 H Respiratory Rate 18 Blood Pressure 142/92 H 156/104 H 06/21/18 12:35 06/21/18 12:41 06/21/18 12:48 Temperature Pulse Rate 90 88 80 Respiratory Rate 17 16 Blood Pressure 162/101 H 158/100 H 06/21/18 13:22 06/21/18 13:58 06/21/18 14:00 Temperature Pulse Rate 86 135 H 135 H Respiratory Rate Blood Pressure 167/90 H 141/86 H 06/21/18 14:16 Temperature Pulse Rate 115 H Respiratory Rate Blood Pressure 149/86 H Results - Labs CBC & Chem 7: 06/21/18 12:55 06/21/18 12:55 Labs: Laboratory Results - last 24 hr 06/21/18 06/21/18 12:55 12:55 WBC 8.7 RBC 4.17 Hgb 10.3 L Hct 31.9 L MCV 76.4 L MCH 24.8 L MCHC 32.5 RDW 15.7 Plt Count 278 MPV 7.0 Neut % (Auto) 70.5 H Lymph % (Auto) 21.1 Giles % (Auto) 5.0 Eos % (Auto) 3.1 Baso % (Auto) 0.3 Neut # (Auto) 6.1 Lymph # (Auto) 1.8 Giles # (Auto) 0.4 Eos # (Auto) 0.3 Baso # (Auto) 0.0 WBC Differential . Differential Comment Auto diff final Sodium 144 Potassium 3.7 Chloride 107 Carbon Dioxide 26.0 Anion Gap 11 BUN 13 Creatinine 0.57 Estimated GFR Greater than 89 Random Glucose 79 Calcium 8.4 L Total Bilirubin 0.3 AST 87 H ALT 49 Alkaline Phosphatase 83 Total Protein 6.5 D Albumin 2.8 L Assessment and Plan - Plan CHTN with superimposed preeclampsia - patient was given PO prcardia x 2 in triage with a good response after tressa second dose. Labs note and increased AST level at 87. I spoke with Dr. Canada and discussed the patient in detail. He has agreed to admit her for magnesium therapy x 24hrs and PO procardia for BP control. Discharge Plan - Physicians Team ED Provider: Isidro Marsh Primary Care Provider: Primary Care Physici,No - Rxs /Orders / Referrals /Forms Prescriptions: No Action aspirin 81 mg Tablet,Chewable 81 mg PO DAILY azithromycin 250 mg Tablet 250 mg PO DAILY Qty: 1 RF: 0 lorazepam 1 mg Tablet 2 mg PO Q6H RF: 0 metoprolol tartrate 50 mg Tablet 50 mg PO DAILY@0800,1700 Qty: 0 RF: 0 PNV cmb#95-ferrous fumarate-FA [] 28 mg iron- 800 mcg Tablet 1 tab PO DAILY - Discharge Instructions Print Language: Portuguese
[2018-06-21] MEDS: Mag Sulf/Water 40 gm/1000 ml 40 GM/1,000 ML BAG IV.CONT SCH (14:51)
[2018-06-21] MEDS: Ibuprofen 600 MG Tablet PO PRN (17:06)
--- NOTE | 2018-06-21 19:16 | MH ---
cc: Bimal Canada MD DATE OF ADMISSION: 06/21/2018 HISTORY OF PRESENT ILLNESS: This is a 27-year-old 2, para 2, who has recently delivered a vaginal at 37 weeks for cholestasis of . The patient returns to the hospital today day 5. The patient has had elevated blood pressures which she was controlling with metoprolol. She was started on Procardia today for elevated blood pressures in the 160/100 range and immediately, her blood pressure improved, but the patient had elevated LFTs and an AST of 87. The patient has a headache and some epigastric pain. No other problems. PAST MEDICAL HISTORY: Significant for anxiety, previous history of preeclampsia with her previous . She had cholestasis during this , chronic hypertension. PAST SURGICAL HISTORY: She has had no previous surgeries. SOCIAL HISTORY: She does not smoke, drink or use drugs. She is . MEDICATIONS: Include: 1. Metoprolol. 2. Ativan 2 mg q.6 hours. 3. Lopressor 50 mg p.o. b.i.d. 4. Ibuprofen as needed. ALLERGIES: INCLUDE CLARITHROMYCIN, LATEX, CIPROFLOXACIN, DOXYCYCLINE, GADOBENIC ACID, GADODIAMIDE, GADOTERIDOL, LABETALOL, PENICILLIN G AND ZOLOFT. REVIEW OF SYSTEMS: Significant for the headache, high blood pressure and mid epigastric pain. PHYSICAL EXAMINATION: VITAL SIGNS: Blood pressure is now 131/87 and 113/78, pulse is 98 and 109, respirations 16, temperature 98.5. HEART: Regular rate and rhythm without murmur or gallop. LUNGS: Clear to auscultation bilaterally. ABDOMEN: Soft, nontender, nondistended. PELVIC: Normal lochia. EXTREMITIES: Trace edema. NEUROLOGIC: Slightly hyperreflexic. IMPRESSION: At this time is: 1. HELLP syndrome with an elevated AST of 87. The patient will be started on magnesium, Procardia for blood pressure. 2. The patient is 5 days and doing very well. 3. The patient has anxiety. We will try to manage her anxiety the best we can with her lorazepam. PLAN: Keep the patient here for 24 hours on magnesium, discontinue her magnesium and discharge home when her AST improves. MD NEFTALY Keane/rivas , 06:46 PM , 06:55 PM
[2018-06-21] MEDS ORDERED: Metoprolol Tartrate 50 MG Tablet PO ONE (20:30)
[2018-06-21] MEDS ORDERED: NIFEdipine 10 MG Capsule PO SCH (21:00)
[2018-06-22] MEDS: Ibuprofen 600 MG Tablet PO PRN ×2 (05:28→22:35)
[2018-06-22] MEDS: Metoprolol Tartrate 50 MG Tablet PO SCH ×2 (07:41→18:14)
[2018-06-22 08:31] LABS: Hematocrit 35.3 % (35.0-46.0); Hemoglobin 11.6 gm/dL (11.6-15.3); Mean Corpuscular HGB Conc 32.8 % (32.0-36.0); Mean Corpuscular Hemoglobin 24.8 pg (27.0-34.0); Mean Corpuscular Volume 75.5 fL (80.0-100.0); Mean Platelet Volume 6.6 fL (7.0-11.0); Platelet Count 315 th/mm3 (150-450); Red Blood Count 4.67 mil/mm3 (4.00-5.30); Red Cell Distribution Width 15.9 % (11.6-17.2); White Blood Count 7.8 th/mm3 (4.0-11.0)
--- NOTE | 2018-06-22 08:48 | P.PNOB ---
Progress Note: A/P (1) Pre-eclampsia added to pre-existing hypertension Status: Acute Code(s): O11.9 - Pre-existing hypertension with pre-eclampsia, unspecified trimester Current Visit: Yes - Time Spent With Patient Total time spent is greater than 50% in coordination of care (as documented) at patient's floor/unit and/or counseling patient: less than 15 minutes Subjective Interval history: 27 yo with mild preeclampsia and elevated LFT on magnesium Physical Exam Vital signs: Temp Pulse Resp BP 98.0 F 86 16 136/82 06/22/18 07:38 06/22/18 06:55 06/22/18 07:37 06/22/18 07:37 - Constitutional no acute distress - Routine Abdominal Exam Present: soft, normoactive bowel sounds - Routine Exam Perineal: Present: Intact Results - Labs CBC & Chem 7: 06/22/18 08:14 06/21/18 12:55 Labs: Laboratory Results - last 24 hr 06/21/18 06/21/18 06/22/18 12:55 12:55 08:14 WBC 8.7 7.8 RBC 4.17 4.67 Hgb 10.3 L 11.6 Hct 31.9 L 35.3 MCV 76.4 L 75.5 L MCH 24.8 L 24.8 L MCHC 32.5 32.8 RDW 15.7 15.9 Plt Count 278 315 MPV 7.0 6.6 L Neut % (Auto) 70.5 H Lymph % (Auto) 21.1 Howell % (Auto) 5.0 Eos % (Auto) 3.1 Baso % (Auto) 0.3 Neut # (Auto) 6.1 Lymph # (Auto) 1.8 Howell # (Auto) 0.4 Eos # (Auto) 0.3 Baso # (Auto) 0.0 WBC Differential . Differential Comment Auto diff final Sodium 144 Potassium 3.7 Chloride 107 Carbon Dioxide 26.0 Anion Gap 11 BUN 13 Creatinine 0.57 Estimated GFR Greater than 89 Random Glucose 79 Calcium 8.4 L Total Bilirubin 0.3 AST 87 H ALT 49 Alkaline Phosphatase 83 Total Protein 6.5 D Albumin 2.8 L
[2018-06-22] MEDS: NIFEdipine 10 MG Capsule PO SCH ×3 (08:56→18:14)
[2018-06-22 08:58] LABS: Total Protein 6.9 g/dL (6.4-8.2)
[2018-06-22] MEDS: Mag Sulf/Water 40 gm/1000 ml 40 GM/1,000 ML BAG IV.CONT SCH ×2 (11:24→18:09)
[2018-06-22 19:02] LABS: Albumin 3.1 g/dL (3.4-5.0)
[2018-06-23 07:50] LABS: Hematocrit 35.5 % (35.0-46.0); Hemoglobin 11.7 gm/dL (11.6-15.3); Mean Corpuscular Volume 75.6 fL (80.0-100.0); Mean Platelet Volume 6.6 fL (7.0-11.0); Platelet Count 335 th/mm3 (150-450); White Blood Count 8.5 th/mm3 (4.0-11.0)
[2018-06-23 08:02] VITALS: TEMP 98.7
[2018-06-23] MEDS: Metoprolol Tartrate 50 MG Tablet PO SCH (08:02)
[2018-06-23 08:17] LABS: Albumin 2.8 g/dL (3.4-5.0)
[2018-06-23 08:20] LABS: Total Protein 6.3 g/dL (6.4-8.2)
[2018-06-23 08:39] VITALS: RESP 17
--- NOTE | 2018-06-23 08:41 | P.PNOB ---
Progress Note: A/P (1) Pre-eclampsia added to pre-existing hypertension Status: Acute Code(s): O11.9 - Pre-existing hypertension with pre-eclampsia, unspecified trimester Current Visit: Yes - Time Spent With Patient Total time spent is greater than 50% in coordination of care (as documented) at patient's floor/unit and/or counseling patient: less than 15 minutes Subjective Interval history: 27 yo with mild preeclampsia and elevated LFT now improved after LFT are returning to normal Physical Exam Vital signs: Temp Pulse Resp BP 98.7 F 85 15 137/88 06/23/18 08:00 06/23/18 08:02 06/23/18 03:54 06/23/18 08:02 - Constitutional no acute distress Results - Labs CBC & Chem 7: 06/23/18 07:17 06/21/18 12:55 Labs: Laboratory Results - last 24 hr 06/22/18 06/22/18 06/23/18 08:14 18:30 07:17 WBC 8.5 RBC 4.70 Hgb 11.7 Hct 35.5 MCV 75.6 L MCH 25.0 L MCHC 33.0 RDW 16.0 Plt Count 335 MPV 6.6 L Total Bilirubin 0.3 0.2 Direct Bilirubin 0.1 0.1 Indirect Bilirubin 0.2 0.1 AST 103 H 79 H ALT 60 H 61 H Alkaline Phosphatase 93 90 Total Protein 6.9 7.0 Albumin 3.0 L 3.1 L 06/23/18 07:17 WBC RBC Hgb Hct MCV MCH MCHC RDW Plt Count MPV Total Bilirubin 0.3 Direct Bilirubin 0.1 Indirect Bilirubin 0.2 AST 43 H ALT 49 Alkaline Phosphatase 78 Total Protein 6.3 L D Albumin 2.8 L
--- NOTE | 2018-06-23 08:50 | P.DS ---
Date of admission: 06/21/18 15:05 Primary care physician: No Primary Care Physician Attending physician on discharge: Bimal Canada Anticipated date of discharge: 06/23/18 Brief History from admission: 27 yo pt came back with post preeclampsia. She was given mag and improved LFT DS: Diagnosis - Discharge Diagnosis (1) Pre-eclampsia added to pre-existing hypertension Status: Acute DS: Summary Hospital Course: patient had 9/4 elevated LFT and received magnesium and is improving. Pt requests procardia xl to go home with. She will follow up 1 week - Time Spent with Patient Total time spent providing and/or coordinating discharge services: Less than 30 minutes Exam Vital signs: Vital Signs 06/22/18 08:57 06/22/18 10:00 06/22/18 10:03 Temperature Pulse Rate 88 Respiratory Rate 16 18 18 Blood Pressure 117/75 06/22/18 11:13 06/22/18 11:28 06/22/18 11:58 Temperature 98.6 F Pulse Rate 88 91 H Respiratory Rate 16 Blood Pressure 110/65 122/79 06/22/18 12:56 06/22/18 13:54 06/22/18 13:55 Temperature Pulse Rate 87 82 Respiratory Rate 16 16 Blood Pressure 119/81 118/75 06/22/18 14:49 06/22/18 15:26 06/22/18 19:27 Temperature 98.3 F Pulse Rate 105 H 107 H 99 H Respiratory Rate 18 18 Blood Pressure 126/85 121/78 123/75 06/22/18 19:33 06/22/18 23:52 06/22/18 23:54 Temperature 98.3 F 98.4 F Pulse Rate 71 66 Respiratory Rate 18 14 Blood Pressure 104/54 L 06/23/18 03:54 06/23/18 03:55 06/23/18 08:00 Temperature 98.5 F 98.7 F Pulse Rate 74 Respiratory Rate 15 Blood Pressure 122/80 06/23/18 08:02 06/23/18 08:38 Temperature Pulse Rate 85 Respiratory Rate 17 Blood Pressure 137/88 Intake & Output 06/22/18 06/23/18 06/23/18 18:59 06:59 18:59 Intake Total 1000 / 1000 Balance 1000 / 1000 Intake: IV 1000 / 1000 Magnesium Sulfate/Water 40 gm/ 1000 / 1000 1000 ml Premix 40 gm In 1,000 ml @ 2 GM/HR 50 mls/hr IV.CONT Q24H [facility] Rx#:[id number] - Constitutional no acute distress Results Procedures completed during hospitalization: none Labs on day of discharge: Labs from last 24 hours 06/23/18 06/23/18 06/22/18 07:17 07:17 18:30 WBC 8.5 RBC 4.70 Hgb 11.7 Hct 35.5 MCV 75.6 L MCH 25.0 L MCHC 33.0 RDW 16.0 Plt Count 335 MPV 6.6 L Total Bilirubin 0.3 0.2 Direct Bilirubin 0.1 0.1 Indirect Bilirubin 0.2 0.1 AST 43 H 79 H ALT 49 61 H Alkaline Phosphatase 78 90 Total Protein 6.3 L D 7.0 Albumin 2.8 L 3.1 L 06/22/18 08:14 WBC RBC Hgb Hct MCV MCH MCHC RDW Plt Count MPV Total Bilirubin 0.3 Direct Bilirubin 0.1 Indirect Bilirubin 0.2 AST 103 H ALT 60 H Alkaline Phosphatase 93 Total Protein 6.9 Albumin 3.0 L Discharge Plan - Discharge Disposition Patient Disposition: 01 Discharge Home - Discharge Condition Condition: Stable - Discharge Order Discharge Orders: Discharge Order (Routine); Ordered 06/23/18 Ordered By: Bimal Canada - Discharge Details Anticipated Discharge Date: 06/21/18 - Physicians Team Primary Care Provider: Primary Care Rekha Mas Attending Provider: Bimal Canada
[2018-06-23 09:39] VITALS: BP 140/89; PULSE 89
== END 2018-06-23 09:41 | disposition home or self-care (01) ==
LOC: H2E 12:02 → HOBED 12:02 → OBSVTOIN 14:22 → HOBED 14:51 → H2E 15:00
PROVIDERS: ADMIT Obstetrics & Gynecology; ATTEND Obstetrics & Gynecology
DX: O26.63 Liver and biliary tract disorders in the puerperium; Z91.040 Latex allergy status; K83.1 Obstruction of bile duct; Z88.1 Allergy status to other antibiotic agents; O11.5 Pre-existing hypertension with pre-eclampsia, complicating the puerperium; Z87.59 Personal history of other complications of pregnancy, childbirth and the puerperium; O99.345 Other mental disorders complicating the puerperium; Z79.82 Long term (current) use of aspirin; F41.9 Anxiety disorder, unspecified